=== PATIENT | male | born 1940 | race Caucasian/White ===

== ENCOUNTER 2021-05-03 13:16 | Inpatient (IN) | payer MEDICARE, OTHER ==
[~2021-05-03] VITALS: Ht 172.7 cm; Wt 55.0 kg
[2021-05-03 13:44] LABS: BASE EXCESS ABG -8 mmol/L (-3-3); FIO2 ABG 100 BIPAP; HCO3 ABG 20 mmol/L (21-28); PCO2 ABG 51 mmHg (35-46); PO2 ABG 151 mmHg (65-108); SAT O2 ABG 98 % (92-99)
[2021-05-03 13:52] LABS: BASO # 0.1 x10^3/uL (0.0-0.2); BASO % 1 % (0-3); EOS # 0.2 x10^3/uL (0.0-0.7); EOS % 1 % (0-3); HEMATOCRIT 42.9 % (39.0-53.0); HEMOGLOBIN 13.6 g/dL (13.0-17.5); LYMPH # 1.5 x10^3/uL (1.0-4.8); LYMPH % 11 % (24-48); MEAN CORPUSCULAR HEMOGLOBIN 30 pg (25-35); MEAN CORPUSCULAR HGB CONC 32 g/dL (31-37); MEAN CORPUSCULAR VOLUME 95 fL (79-100); MONO # 0.6 x10^3/uL (0.0-1.1); MONO % 5 % (0-9); NEUT # 11.8 x10^3/uL (1.8-7.7); NEUT % 83 % (31-73); PLATELET COUNT 271 x10^3/uL (140-400); RED BLOOD COUNT 4.54 x10^6/uL (4.30-5.70); RED CELL DISTRIBUTION WIDTH 15.9 % (11.5-14.5); WHITE BLOOD COUNT 14.1 x10^3/uL (4.0-11.0)
--- NOTE | 2021-05-03 13:58 | RAD ---
EXAMINATION: Chest radiograph. VIEWS: Single AP view of the chest COMPARISON: None INDICATION:81 years, Male, shortness of air. FINDINGS: Cardiac mediastinal silhouette is within normal limits. There is tortuosity of the thoracic aorta wit h associated atherosclerotic disease. Findings of severe pulmonary emphysema. Diffuse increased retic ular interstitial opacities. Biapical pleural scarring. Right lower lobe consolidation. Possible mode rate left diaphragmatic hernia. The right costophrenic angle is partially visualized. There is no siz able pleural effusion. No pneumothorax. No acute osseous amount is. IMPRESSION: 1. Findings concerning for right lower lobe pneumonia superimposed on chronic interstitial lung disea se. 2. Possible moderate left diaphragmatic hernia. Electronically signed by: Bill Hylton DO (05/03/2021 1:56 PM) [facility]
[2021-05-03 14:02] LABS: CALCIUM 9.2 mg/dL (8.5-10.1); CREATININE 2.2 mg/dL (0.7-1.3); GFR 28.8; POTASSIUM 4.7 mmol/L (3.5-5.1)
[2021-05-03 14:17] LABS: ALBUMIN 3.9 g/dL (3.4-5.0); TOTAL BILIRUBIN 0.4 mg/dL (0.2-1.0); TOTAL PROTEIN 7.7 g/dL (6.4-8.2)
[2021-05-03] MEDS ORDERED: IV NORMAL SALINE 1000ML BAG 1,000 ML IV ONE (14:45)
[2021-05-03] MEDS ORDERED: AZITHRMYCN 500MG IVPB FOR OMNI 250 ML IV ONE (14:45)
[2021-05-03] MEDS ORDERED: cefTRIAXone IV Push 1 GM VIAL. IVP ONE (14:45)
[2021-05-03] MEDS ORDERED: IPRATRPIUM/ALBUTEROL 0.5/2.5MG 3 ML NEBU. NEB ONE (15:00)
[2021-05-03] MEDS ORDERED: methylPREDNISolone SOD SUCC PF 125 MG/2 ML VIAL. IV ONE (15:00)
[2021-05-03 15:06] LABS: INFLUENZA A PATIENT NEGATIVE (NEGATIVE); INFLUENZA B PATIENT NEGATIVE (NEGATIVE)
--- NOTE | 2021-05-03 15:14 | PHYS DOC ---
Past Medical History Additional Past Medical Histor: UNKNOWN Past Surgical History: Other Additional Past Surgical Histo: UNKNOWN Smoking Status: Unknown if ever smoked Alcohol Use: None Additional Information: UNKNOWN Social History Narrative: UNKNOWN General Adult EDM: Chief Complaint: DYSPNEA/RESPIRATORY DISTRESS HPI: HPI: Patient is a 81 year old male who was brought here by EMS due to respiratory distress. Patient stated that he has been sick with cough, trouble breathing, flulike symptoms for about 3 weeks. He does have a history of COPD, his doctors are at the [place]. patient said he was trying to drive himself to the hospital today but he had to stop by the road to call EMS because he was having trouble breathing and did not think he could make it. EMS found him in severe respiratory distress, his oxygen saturation was 65% on room air. Patient was placed on CPAP and brought him here emergently. Upon arrival to room patient was put on BiPAP in the ED because he was in respiratory distress. Not much information was obtained from the patient or medical record initially. Later, patient stated that he did not have any chest pain, he was fully vaccinated for COVID-19. Review of Systems: Review of Systems: Constitutional: Denies fever or chills. [] Eyes: Denies change in visual acuity. [] HENT: Denies nasal congestion or sore throat. [] Respiratory: Positive for cough and trouble breathing Cardiovascular: Denies chest pain or edema. [] GI: Denies abdominal pain, nausea, vomiting, bloody stools or diarrhea. [] : Denies dysuria. [] Musculoskeletal: Denies back pain or joint pain. [] Integument: Denies rash. [] Neurologic: Denies headache, focal weakness or sensory changes. [] Endocrine: Denies polyuria or polydipsia. [] Lymphatic: Denies swollen glands. [] Psychiatric: Denies depression or anxiety. [] Heart Score: C/O Chest Pain: N/A Risk Factors: Risk Factors: DM, Current or recent (<one month) smoker, HTN, HLP, family history of CAD, obesity. Risk Scores: Score 0 - 3: 2.5% MACE over next 6 weeks - Discharge Home Score 4 - 6: 20.3% MACE over next 6 weeks - Admit for Clinical Observation Score 7 - 10: 72.7% MACE over next 6 weeks - Early Invasive Strategies Current Medications: Current Medications Medications (Trade) Dose Ordered Sig/Krystina Start Time Stop Time Status Last Admin Dose Admin Albuterol/ Ipratropium (Duoneb) 3 ml 1X ONCE 05/03/21 15:00 05/03/21 15:01 DC 05/03/21 14:57 3 ML Azithromycin 250 ml @ 250 mls/hr 1X ONCE 05/03/21 14:45 05/03/21 15:44 Ceftriaxone Sodium (Rocephin) 1 gm 1X ONCE 05/03/21 14:45 05/03/21 14:46 DC Furosemide (Lasix) 40 mg 1X ONCE 05/03/21 15:15 05/03/21 15:16 Methylprednisolone Sodium Succinate (SOLU-Medrol 125MG VIAL) 125 mg 1X ONCE 05/03/21 15:00 05/03/21 15:01 DC Sodium Chloride 1,000 ml @ 1,000 mls/hr 1X ONCE 05/03/21 14:45 05/03/21 15:44 Allergies: Allergies: Allergies Coded Allergies Type Severity Reaction Last Updated Verified Unable to Assess 05/03/21 No Physical Exam: PE: Constitutional: Well developed, well nourished, no acute distress, non-toxic appearance. [] HENT: Normocephalic, atraumatic, bilateral external ears normal, oropharynx moist, no oral exudates, nose normal. [] Eyes: PERRLA, EOMI, conjunctiva normal, no discharge. [] Neck: Normal range of motion, no tenderness, supple, no stridor. [] Cardiovascular:Heart rate regular rhythm, no murmur [] Lungs & Thorax: Bilateral breath sounds clear to auscultation [] Abdomen: Bowel sounds normal, soft, no tenderness, no masses, no pulsatile masses. [] Skin: Warm, dry, no erythema, no rash. [] Back: No tenderness, no CVA tenderness. [] Extremities: No tenderness, no cyanosis, no clubbing, ROM intact, no edema. [] Neurologic: Alert and oriented X 3, normal motor function, normal sensory function, no focal deficits noted. [] Psychologic: Affect normal, judgement normal, mood normal. [] Current Patient Data: Labs: Laboratory Tests Test 05/03/21 13:30 05/03/21 13:40 11/25/21 14:05 White Blood Count 14.1 x10^3/uL (4.0-11.0) H Red Blood Count 4.54 x10^6/uL (4.30-5.70) Hemoglobin 13.6 g/dL (13.0-17.5) Hematocrit 42.9 % (39.0-53.0) Mean Corpuscular Volume 95 fL (79-100) Mean Corpuscular Hemoglobin 30 pg (25-35) Mean Corpuscular Hemoglobin Concent 32 g/dL (31-37) Red Cell Distribution Width 15.9 % (11.5-14.5) H Platelet Count 271 x10^3/uL (140-400) Neutrophils (%) (Auto) 83 % (31-73) H Lymphocytes (%) (Auto) 11 % (24-48) L Monocytes (%) (Auto) 5 % (0-9) Eosinophils (%) (Auto) 1 % (0-3) Basophils (%) (Auto) 1 % (0-3) Neutrophils # (Auto) 11.8 x10^3/uL (1.8-7.7) H Lymphocytes # (Auto) 1.5 x10^3/uL (1.0-4.8) Monocytes # (Auto) 0.6 x10^3/uL (0.0-1.1) Eosinophils # (Auto) 0.2 x10^3/uL (0.0-0.7) Basophils # (Auto) 0.1 x10^3/uL (0.0-0.2) Sodium Level 138 mmol/L (136-145) Potassium Level 4.7 mmol/L (3.5-5.1) Chloride Level 100 mmol/L (98-107) Carbon Dioxide Level 26 mmol/L (21-32) Anion Gap 12 (6-14) Blood Urea Nitrogen 33 mg/dL (8-26) H Creatinine 2.2 mg/dL (0.7-1.3) H Estimated GFR (Cockcroft-Gault) 28.8 BUN/Creatinine Ratio 15 (6-20) Glucose Level 273 mg/dL (70-99) H Lactic Acid Level 3.9 mmol/L (0.4-2.0) H Calcium Level 9.2 mg/dL (8.5-10.1) Total Bilirubin 0.4 mg/dL (0.2-1.0) Aspartate Amino Transferase (AST) 60 U/L (15-37) H Alanine Aminotransferase (ALT) 44 U/L (16-63) Alkaline Phosphatase 172 U/L (46-116) H Troponin I High Sensitivity 129 ng/L (4-75) H Total Protein 7.7 g/dL (6.4-8.2) Albumin 3.9 g/dL (3.4-5.0) Albumin/Globulin Ratio 1.0 (1.0-1.7) O2 Saturation 98 % (92-99) Arterial Blood pH 7.22 (7.35-7.45) L Arterial Blood pCO2 at Patient Temp 51 mmHg (35-46) H Arterial Blood pO2 at Patient Temp 151 mmHg (65-108) H Arterial Blood HCO3 20 mmol/L (21-28) L Arterial Blood Base Excess -8 mmol/L (-3-3) L FiO2 100 bipap Magnesium Level 3.1 mg/dL (1.8-2.4) H JC-Inp-W-Type Natriuretic Peptide > 56530 pg/mL (0-449) H Influenza Type A Antigen Negative (NEGATIVE) Influenza Type B Antigen Negative (NEGATIVE) SARS-CoV-2 Antigen (Rapid) Negative (NEGATIVE) Laboratory Tests 05/03/21 13:30 Laboratory Tests 05/03/21 13:30 Vital Signs: Vital Signs Date Time Temp Pulse Resp B/P (MAP) Pulse Ox O2 Delivery O2 Flow Rate FiO2 05/03/21 14:59 92 BiPAP/CPAP 05/03/21 13:28 98.0 116 36 239/120 (159) 98.0 EKG: EKG: EKG was done at 1430, heart rate 95 bpm, sinus rhythm, left atrial abnormality, left axis deviation, no ST segment elevation. Radiology/Procedures: Radiology/Procedures: [][facility] [address] [place], [place] [id number] IMAGING REPORT Signed PATIENT: JORGE HUBER ACCOUNT: [id number] : 1940 LOCATION: ER AGE: 81 SEX: M EXAM STATUS: PRE ER ORD. PHYSICIAN: GALE RICKETTS DO REASON: soa PROCEDURE: PORTABLE CHEST 1V EXAMINATION: Chest radiograph. VIEWS: Single AP view of the chest COMPARISON: None INDICATION:81 years, Male, shortness of air. FINDINGS: Cardiac mediastinal silhouette is within normal limits. There is tortuosity of the thoracic aorta with associated atherosclerotic disease. Findings of severe pulmonary emphysema. Diffuse increased reticular interstitial opacities. Biapical pleural scarring. Right lower lobe consolidation. Possible moderate left diaphragmatic hernia. The right costophrenic angle is partially visualized. There is no sizable pleural effusion. No pneumothorax. No acute osseous amount is. IMPRESSION: 1. Findings concerning for right lower lobe pneumonia superimposed on chronic interstitial lung disease. 2. Possible moderate left diaphragmatic hernia. Electronically signed by: Ariel Hylton DO (05/03/2021 1:56 PM) [facility] DICTATED and SIGNED BY: ARIEL HYLTON DO DATE: 05/03/21 [id number] 0 Course & Med Decision Making: Course & Med Decision Making Pertinent Labs and Imaging studies reviewed. (See chart for details) Patient is a 81-year-old male who was brought here by EMS due to respiratory distress. Patient was found to be in COPD exacerbation, pneumonia. Patient BNP is elevated and her troponin elevated as well. Patient did not have any chest pain, IT IS most likely that t patient has CHF on top of his pneumonia and COPD exacerbation. Patient was given DuoNeb treatment in the ED, patient was given IV Solu-Medrol, IV antibiotic in the ED. Patient was given IV Lasix in the ER. Patient will be admitted to hospital for further evaluation and treatment. Discussed with hospitalist on-call Dr. Knox who agreed to admit the patient Due to a high probability of clinically significant, life-threatening deterioration, the patient required my highest level of preparedness to intervene emergently and I personally spent this critical care time directly and personally managing the patient. This critical care time included obtaining the history; examining the patient; pulse oximetry; real-time ordering and review of studies; arranging urgent treatment with development of a management plan; evaluation of patient's response to treatment; frequent reassessment; and, di scussions with other providers. This critical care time was performed to assess and manage the high probability of imminent, life-threatening deterioration that could result in multi-organ failure. It was not inclusive of separately billable procedures. Please see the Course and Medical Decision Making section and the rest of the note for further information on patient assessment and treatment. Critical care time was [45] minutes which includes time at bedside, spent in discussion of patient's care with specialist and/or family members, with interpretation of laboratory and/or radiological studies and is exclusive of procedures. Dragon Disclaimer: Dragon Disclaimer: This electronic medical record was generated, in whole or in part, using a voice recognition dictation system. Departure Departure Impression: Primary Impression: Pneumonia Additional Impressions: COPD exacerbation CHF (congestive heart failure) Disposition: 09 ADMITTED INPATIENT Admitting Physician: YAEL (DR. KNOX) Condition: IMPROVED Referrals: UNKNOWN PCP NAME (PCP) GALE RICKETTS DO May 03, 2021 15:14
[2021-05-03] MEDS ORDERED: FUROSEMIDE 40 MG/4 ML VIAL. IVP ONE (15:15)
[2021-05-03] MEDS ORDERED: ONDANSETRON PF 4 MG/2 ML VIAL. IVP PRN (15:30)
[2021-05-03] MEDS ORDERED: PIP/TAZO PER PHARMACY MC PRN (16:45)
--- NOTE | 2021-05-03 16:50 | HP ---
DATE OF SERVICE: 05/03/2021 ADMIT DATE: 05/03/2021 CHIEF COMPLAINT: Shortness of breath. HISTORY OF PRESENT ILLNESS: The patient is a pleasant 81-year-old male who presented to the ER with shortness of breath. He came in by ambulance. He states he has been having cough and trouble breathing and feeling like he had the flu for about 3 weeks. He has known COPD. We did a COVID test in the ER, surprisingly negative. His chest x-ray does show possible pneumonia. He also has a BNP level greater than 35,000. His troponin is high at 129. I discussed the case with the ER physician. We are going to admit the patient for respiratory failure and consultation with Pulmonary and Cardiology. PAST MEDICAL HISTORY: COPD, previous tobacco abuse. ALLERGIES: None. FAMILY HISTORY: Diabetes. SOCIAL HISTORY: He quit smoking. No drink or drugs. MEDICATIONS: Reviewed. Please refer to the MRAD. REVIEW OF SYSTEMS: Unable to obtain. He is on BiPAP. PHYSICAL EXAMINATION: VITALS: Within normal limits and are stable. GENERAL: He is on BiPAP. HEENT: Normocephalic atraumatic, external auditory canals are patent. EYES: Extraocular muscles are intact, pupils are equally round and reactive to light and accommodation. MUSCULOSKELETAL: Well developed, well nourished, good range of motion. ENDOCRINE: No thyromegaly was palpated. LYMPHATICS: No cervical chain or axillary nodes were noted. HEMATOPOIETIC: No bruising. NECK: Supple, no JVD, no thyromegaly was noted. LUNGS: He has bibasilar crackles. HEART: RRR, S1, S2 present. Peripheral pulses intact, no obvious murmurs were noted. ABDOMEN: Soft, nontender. Positive bowel sounds. No organomegaly, normal bowel sounds. EXTREMITIES: Without any cyanosis, clubbing, or edema. Pedal pulses intact, Homans sign is negative. NEUROLOGIC: He is resting, with no apparent distress. PSYCHIATRIC: He is sleeping. SKIN: No ulcerations or rashes, good skin turgor, no jaundice. VASCULAR: Good capillary refill, neurovascular bundle appears to be intact. LABORATORY DATA: White count 14, hemoglobin is 13.6, platelets 271. Electrolytes are normal other than a BUN of 33 and a creatinine of 2.2. ABG shows a pH of 7.22, pCO2 of 51, pO2 of 151, bicarbonate 20 with 98% sat that was on 100% BiPAP. COVID testing is negative. Flu testing is negative. Chest x-ray shows pneumonia and superimposed interstitial lung disease and a possible left diaphragmatic hernia. ASSESSMENT AND PLAN: Multifactorial respiratory failure with heart failure and pneumonia and history of chronic obstructive pulmonary disease. The patient has been admitted. We will start IV antibiotics, DuoNebs, continue the BiPAP, IV steroids, nebulizer treatments. Consult Pulmonary, consult Cardiology. Home meds. Deep venous thrombosis prophylaxis. Full code. Prognosis long-term, guarded. Cardiac monitoring. P.r.n. Zofran. We gave 1 dose of IV Lasix in the ER and we will continue with that if Cardiology agrees. JUANI/[facility]: JUANI/chidi TID: [id number]
[2021-05-03 18:07] VITALS: BP 159/77
--- NOTE | 2021-05-03 19:07 | EKG ---
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
[2021-05-03 19:35] VITALS: BP 137/80
[2021-05-03] MEDS: PIPERACILLIN/TAZOBACTAM 2.25 GM in IV NORMAL SALINE 50ML 50 ML IV SCH (19:37)
[2021-05-03] MEDS: IPRATRPIUM/ALBUTEROL 0.5/2.5MG 3 ML NEBU. NEB SCH (19:37)
[2021-05-03] MEDS ORDERED: IPRATRPIUM/ALBUTEROL 0.5/2.5MG 3 ML NEBU. NEB SCH (20:00)
[2021-05-03] MEDS: methylPREDNISolone SOD SUCC PF 40 MG/ML VIAL. IV SCH (20:50)
[2021-05-03 22:40] VITALS: BP 135/53
[2021-05-04] MEDS: PIPERACILLIN/TAZOBACTAM 2.25 GM in IV NORMAL SALINE 50ML 50 ML IV SCH ×4 (00:56→18:20)
[2021-05-04 02:43] VITALS: BP 153/76
[2021-05-04 04:33] LABS: BASO % 0 % (0-3); EOS % 0 % (0-3); HEMATOCRIT 33.1 % (39.0-53.0); HEMOGLOBIN 10.9 g/dL (13.0-17.5); LYMPH # 0.3 x10^3/uL (1.0-4.8); LYMPH % 4 % (24-48); MEAN CORPUSCULAR HEMOGLOBIN 30 pg (25-35); MEAN CORPUSCULAR HGB CONC 33 g/dL (31-37); MEAN CORPUSCULAR VOLUME 92 fL (79-100); MONO # 0.2 x10^3/uL (0.0-1.1); MONO % 2 % (0-9); NEUT # 9.4 x10^3/uL (1.8-7.7); NEUT % 95 % (31-73); PLATELET COUNT 212 x10^3/uL (140-400); RED CELL DISTRIBUTION WIDTH 15.5 % (11.5-14.5); WHITE BLOOD COUNT 9.9 x10^3/uL (4.0-11.0)
[2021-05-04 05:05] LABS: CALCIUM 8.5 mg/dL (8.5-10.1); CREATININE 2.2 mg/dL (0.7-1.3); GFR 28.8; POTASSIUM 4.7 mmol/L (3.5-5.1)
--- NOTE | 2021-05-04 06:43 | EKG ---
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
[2021-05-04 06:59] LABS: % BANDS 4 % (0-9); % LYMPHS 3 % (24-48); % MONOS 2 % (0-10); % SEGS 91 % (35-66)
[2021-05-04 07:00] VITALS: BP 120/76
[2021-05-04 07:00] LABS: PLT ESTIMATE ADEQUATE (ADEQUATE)
[2021-05-04] MEDS: IPRATRPIUM/ALBUTEROL 0.5/2.5MG 3 ML NEBU. NEB SCH ×4 (07:07→19:21)
--- NOTE | 2021-05-04 08:50 | CONS ---
DATE OF CONSULTATION: 05/04/2021 PULMONARY CONSULTATION ATTENDING PHYSICIAN: Sary Knox DO. REASON FOR CONSULTATION: Respiratory failure. HISTORY OF PRESENT ILLNESS: The patient is an 81-year-old male who has a history of tobacco use for 50+ years. The patient states he started smoking again. He was brought into the hospital after he has been noted to be dyspneic. He had a cough. He states that he has been on a modified diet, but he started choking on the food as well. The patient states he was so confused. He was not so sure how he ended up in [facility] initially. The patient was seen in our ER. His chest x-ray was reviewed by me. His chest x-ray was consistent with right lower lobe pneumonia. Overall, there were some bilateral interstitial infiltrates as well. There was no recent old x-ray available for comparison. His arterial blood gases were highly abnormal, which showed a pH of 7.22, pCO2 of 51 and a pO2 of 151 with a bicarbonate of 20. This was on 100% FiO2. The patient was also noted to be in ALBA with a BUN of 41 and a creatinine of 2.2. He is much better today. He is currently requiring 3.5 liters of oxygen. His blood pressure is stable. He is afebrile. His COVID rapid is negative. Influenza negative. He denies any nausea, vomiting. No headaches. No focal weakness. No leg edema or calf pain. No dysuria. Consultation requested for further evaluation and management. The patient received 1 dose of Lasix, IV steroids and also one dose of Lovenox in the ER. The patient was given antibiotics as well. PAST MEDICAL HISTORY: Significant for COPD, suspect severe. A 50+ years of tobacco use and started smoking again recently. PAST SURGICAL HISTORY: No recent surgeries. ALLERGIES: None. FAMILY HISTORY: Diabetes. SOCIAL HISTORY: He smoked for 50+ years and started smoking again. MEDICATIONS: All reviewed as listed in the MRAD. REVIEW OF SYSTEMS: A 12-point system was obtained. Pertinent positives as discussed in my present illness, otherwise noncontributory. All systems that were negative were reviewed as well. PHYSICAL EXAMINATION: GENERAL: He is awake and following commands. VITAL SIGNS: Blood pressure 120 systolic, afebrile, pulse ox 97% on 3.5 liters. NECK: Supple. LUNGS: With few crackles, right base. CARDIOVASCULAR: With a regular rate. ABDOMEN: Soft, nontender. EXTREMITIES: With no pitting edema. LABORATORY DATA: Reviewed. His BUN is 41 and a creatinine of 2.2. His proBNP was more than 35,000. Bicarbonate on ABGs was low. White cell count was 14.1, now down to 9.9, hemoglobin 10.9 and platelets are 212. IMPRESSION: 1. Acute hypoxic and hypercapnic respiratory failure, secondary to multifactorial etiologies and includes combination of acute exacerbation of chronic obstructive pulmonary disease, acute encephalopathy, pneumonia and congestive heart failure. 2. Acute exacerbation of chronic obstructive pulmonary disease in a patient who has smoked for 50+ years and started smoking again. 3. Right lower lobe pneumonia, possible aspiration since he choked on food recently. 4. Abnormal chest x-ray, secondary to combination of pneumonia in the right lower lobe and suspect congestive heart failure. Difficult to rule out any interstitial lung disease as there is no recent x-ray available for comparison. ProBNP is markedly high. 5. Acute kidney injury. 6. Leukocytosis, likely secondary to pneumonia. 7. Metabolic acidosis due to ALBA. RECOMMENDATIONS: 1. Discussed with the patient that at this time, we have to fix multiple issues that he presented to us. He wants to go home as he feels better. I convinced him to stay at least 1 more day and probably more than 1 day stay would be required. 2. We will gradually wean FiO2 based on the saturations. Keep them 92% and above. 3. Continue empiric antibiotics, Zosyn. 4. Speech evaluation. 5. IV steroids. 6. Status post Lasix. We will hold further doses due to ALBA. 7. Follow up chest x-ray in am 7. Follow Renal recommendations. 8. Smoking cessation counseling provided. 9. Monitor BUN and creatinine. 10. Lovenox for DVT prophylaxis. 11. Discussed with RN. Case discussed with the patient and he is agreeable to stay in the hospital. ESTHER DR: Johanna TID: [id number] MTDD
[2021-05-04] MEDS: methylPREDNISolone SOD SUCC PF 40 MG/ML VIAL. IV SCH ×2 (08:59→20:08)
[2021-05-04] MEDS: HEPARIN for SUB-Q USE 5,000 UNIT/ML VIAL. SQ SCH ×3 (09:00→21:30)
[2021-05-04] MEDS: LACTOBACILLUS RHAMNOSUS GG 1 CAPSULE. PO SCH ×2 (09:00→20:09)
--- NOTE | 2021-05-04 10:43 | PDOC2 ---
CONSULT Date of Consult Date of Consult DATE: 05/04/21 TIME: 10:38 Reason for Consult Reason for Consult: RENAL FAILURE Referring Physician Referring Physician: HORTENSIA Identification/Chief Complaint Chief Complaint SOB Source Source: Chart review, Patient History of Present Illness Reason for Visit: THIS IS AN 81 YR OLD WITH SOB. ADMITTED WITH AECOPD. HAS LONG HX OF TOBACCO SMOKING HISTORY. HAS HYPERCARBIA AND HYPOXIA. CR NOTED TO BE 2.2. HE IS UNAWARE OF ANY HX OF KIDNEY PROBLEMS. DENIED ANY LUTS FROM ANY PROSTATE PROBLEMS. NO OTHER HX. HEMODYNAMICALLY STABLE AND NO KNOW NEPHROTOXIN EXPOSURE NOTED. NO HX OF HTN OR DM II Past Medical History Pulmonary: COPD Past Surgical History Past Surgical History NONE Family History Family History: No Significant Social History # pack years (50+) Drugs: None Lives: with Family Current Problem List Problem List Problems Medical Problems: (1) CHF (congestive heart failure) Status: Acute (2) COPD exacerbation Status: Acute (3) Pneumonia Status: Acute Current Medications Current Medications Current Medications Ceftriaxone Sodium (Rocephin) 1 gm 1X ONCE IVP Last administered on 05/03/21at 15:09; Start 05/03/21 at 14:45; Stop 05/03/21 at 14:46; Status DC Azithromycin 250 ml @ 250 mls/hr 1X ONCE IV Last administered on 05/03/21at 1 5:15; Start 05/03/21 at 14:45; Stop 05/03/21 at 15:44; Status DC Sodium Chloride 1,000 ml @ 1,000 mls/hr 1X ONCE IV ; Start 05/03/21 at 14:45; Stop 05/03/21 at 15:44; Status DC Albuterol/ Ipratropium (Duoneb) 3 ml 1X ONCE NEB Last administered on 05/03/21at 14:57; Start 05/03/21 at 15:00; Stop 05/03/21 at 15:01; Status DC Methylprednisolone Sodium Succinate (SOLU-Medrol 125MG VIAL) 125 mg 1X ONCE IV Last administered on 05/03/21at 15:07; Start 05/03/21 at 15:00; Stop 05/03/21 at 15:01; Status DC Furosemide (Lasix) 40 mg 1X ONCE IVP Last administered on 05/03/21at 15:20; Start 05/03/21 at 15:15; Stop 05/03/21 at 15:16; Status DC Ondansetron HCl (Zofran) 4 mg PRN Q8HRS PRN IVP NAUSEA/VOMITING; Start 05/03/21 at 15:30; Stop 05/04/21 at 15:29 Albuterol/ Ipratropium (Duoneb) 3 ml RTQID NEB ; Start 05/03/21 at 20:00; Stop 05/03/21 at 16:41; Status DC Enoxaparin Sodium (Lovenox 60mg Syringe) 60 mg 1X ONCE SQ Last administered on 05/03/21at 15:56; Start 05/03/21 at 16:00; Stop 05/03/21 at 16:01; Status DC Albuterol/ Ipratropium (Duoneb) 3 ml RTQID NEB Last administered on 05/03/21at 19:37; Start 05/03/21 at 20:00 Piperacillin Sod/ Tazobactam Sod (Zosyn Per Pharmacy) 1 each PRN DAILY PRN MC SEE COMMENTS; Start 05/03/21 at 16:45 Methylprednisolone Sodium Succinate (SOLU-Medrol 40MG VIAL) 40 mg BID IV Last administered on 05/04/21at 08:59; Start 05/03/21 at 21:00 Piperacillin Sod/ Tazobactam Sod 2.25 gm/Sodium Chloride 50 ml @ 100 mls/hr Q6HRS IV Last administered on 05/04/21at 05:43; Start 05/03/21 at 18:00 Lactobacillus Rhamnosus (Culturelle) 1 cap BID PO Last administered on 05/04/21at 09:00; Start 05/04/21 at 09:00 Heparin Sodium (Porcine) (Heparin Sodium) 5,000 unit Q8HRS SQ Last administered on 05/04/21at 09:00; Start 05/04/21 at 09:00 Allergies Allergies: Coded Allergies: No Known Drug Allergies (Unverified , 05/03/21) ROS General: YES: Fatigue, Malaise PSYCHOLOGICAL ROS: YES: Anxiety HEENT: YES: Heacaches ALLERGY AND IMMUNOLOGY: YES: Seasonal Allergies Respiratory: YES: Cough, Shortness of breath Cardiovascular: yes Other Gastrointestinal: Yes Constipation Genitourinary: YES Other (NOCTURIA) Musculoskeletal: Yes Muscular Weakness Neurological: Yes Weakness Skin: Yes Dry Skin Physical Exam General: Alert, Oriented X3, Cooperative, No acute distress HEENT: Atraumatic Lungs: Clear to auscultation Heart: Regular rate Abdomen: Normal bowel sounds, Soft, No tenderness Extremities: No cyanosis Skin: No breakdown Neuro: Normal speech, Cranial nerves 3-12 NL Psych/Mental Status: Mental status NL, Mood NL MUSCULOSKELETAL: No joint tenderness, No deformity, No swelling Vitals VITALS Vital Signs Date Time Temp Pulse Resp B/P (MAP) Pulse Ox O2 Delivery O2 Flow Rate FiO2 05/04/21 07:00 98.1 86 16 120/76 (91) 97 Nasal Cannula 3.5 98.1 Labs Labs Laboratory Tests Test 05/03/21 13:30 05/03/21 13:40 05/03/21 14:05 05/04/21 04:00 White Blood Count 14.1 x10^3/uL (4.0-11.0) 9.9 x10^3/uL (4.0-11.0) Red Blood Count 4.54 x10^6/uL (4.30-5.70) 3.60 x10^6/uL (4.30-5.70) Hemoglobin 13.6 g/dL (13.0-17.5) 10.9 g/dL (13.0-17.5) Hematocrit 42.9 % (39.0-53.0) 33.1 % (39.0-53.0) Mean Corpuscular Volume 95 fL (79-100) 92 fL (79-100) Mean Corpuscular Hemoglobin 30 pg (25-35) 30 pg (25-35) Mean Corpuscular Hemoglobin Concent 32 g/dL (31-37) 33 g/dL (31-37) Red Cell Distribution Width 15.9 % (11.5-14.5) 15.5 % (11.5-14.5) Platelet Count 271 x10^3/uL (140-400) 212 x10^3/uL (140-400) Neutrophils (%) (Auto) 83 % (31-73) 95 % (31-73) Lymphocytes (%) (Auto) 11 % (24-48) 4 % (24-48) Monocytes (%) (Auto) 5 % (0-9) 2 % (0-9) Eosinophils (%) (Auto) 1 % (0-3) 0 % (0-3) Basophils (%) (Auto) 1 % (0-3) 0 % (0-3) Neutrophils # (Auto) 11.8 x10^3/uL (1.8-7.7) 9.4 x10^3/uL (1.8-7.7) Lymphocytes # (Auto) 1.5 x10^3/uL (1.0-4.8) 0.3 x10^3/uL (1.0-4.8) Monocytes # (Auto) 0.6 x10^3/uL (0.0-1.1) 0.2 x10^3/uL (0.0-1.1) Eosinophils # (Auto) 0.2 x10^3/uL (0.0-0.7) 0.0 x10^3/uL (0.0-0.7) Basophils # (Auto) 0.1 x10^3/uL (0.0-0.2) 0.0 x10^3/uL (0.0-0.2) Sodium Level 138 mmol/L (136-145) 141 mmol/L (136-145) Potassium Level 4.7 mmol/L (3.5-5.1) 4.7 mmol/L (3.5-5.1) Chloride Level 100 mmol/L (98-107) 102 mmol/L (98-107) Carbon Dioxide Level 26 mmol/L (21-32) 27 mmol/L (21-32) Anion Gap 12 (6-14) 12 (6-14) Blood Urea Nitrogen 33 mg/dL (8-26) 41 mg/dL (8-26) Creatinine 2.2 mg/dL (0.7-1.3) 2.2 mg/dL (0.7-1.3) Estimated GFR (Cockcroft-Gault) 28.8 28.8 BUN/Creatinine Ratio 15 (6-20) Glucose Level 273 mg/dL (70-99) 138 mg/dL (70-99) Lactic Acid Level 3.9 mmol/L (0.4-2.0) 1.5 mmol/L (0.4-2.0) Calcium Level 9.2 mg/dL (8.5-10.1) 8.5 mg/dL (8.5-10.1) Total Bilirubin 0.4 mg/dL (0.2-1.0) Aspartate Amino Transf (AST/SGOT) 60 U/L (15-37) Alanine Aminotransferase (ALT/SGPT) 44 U/L (16-63) Alkaline Phosphatase 172 U/L (46-116) Troponin I High Sensitivity 129 ng/L (4-75) Total Protein 7.7 g/dL (6.4-8.2) Albumin 3.9 g/dL (3.4-5.0) Albumin/Globulin Ratio 1.0 (1.0-1.7) O2 Saturation 98 % (92-99) Arterial Blood pH 7.22 (7.35-7.45) Arterial Blood pCO2 at Patient Temp 51 mmHg (35-46) Arterial Blood pO2 at Patient Temp 151 mmHg (65-108) Arterial Blood HCO3 20 mmol/L (21-28) Arterial Blood Base Excess -8 mmol/L (-3-3) FiO2 100 bipap Magnesium Level 3.1 mg/dL (1.8-2.4) LW-Dxc-U-Type Natriuretic Peptide > 19307 pg/mL (0-449) Influenza Type A Antigen Negative (NEGATIVE) Influenza Type B Antigen Negative (NEGATIVE) SARS-CoV-2 RNA (RICKIE) Negative (Negative) SARS-CoV-2 Antigen (Rapid) Negative (NEGATIVE) Segmented Neutrophils % 91 % (35-66) Band Neutrophils % 4 % (0-9) Lymphocytes % 3 % (24-48) Monocytes % 2 % (0-10) Platelet Estimate Adequate (ADEQUATE) Laboratory Tests Test 05/03/21 13:30 05/03/21 13:40 05/03/21 14:05 05/04/21 04:00 White Blood Count 14.1 x10^3/uL (4.0-11.0) 9.9 x10^3/uL (4.0-11.0) Red Blood Count 4.54 x10^6/uL (4.30-5.70) 3.60 x10^6/uL (4.30-5.70) Hemoglobin 13.6 g/dL (13.0-17.5) 10.9 g/dL (13.0-17.5) Hematocrit 42.9 % (39.0-53.0) 33.1 % (39.0-53.0) Mean Corpuscular Volume 95 fL (79-100) 92 fL (79-100) Mean Corpuscular Hemoglobin 30 pg (25-35) 30 pg (25-35) Mean Corpuscular Hemoglobin Concent 32 g/dL (31-37) 33 g/dL (31-37) Red Cell Distribution Width 15.9 % (11.5-14.5) 15.5 % (11.5-14.5) Platelet Count 271 x10^3/uL (140-400) 212 x10^3/uL (140-400) Neutrophils (%) (Auto) 83 % (31-73) 95 % (31-73) Lymphocytes (%) (Auto) 11 % (24-48) 4 % (24-48) Monocytes (%) (Auto) 5 % (0-9) 2 % (0-9) Eosinophils (%) (Auto) 1 % (0-3) 0 % (0-3) Basophils (%) (Auto) 1 % (0-3) 0 % (0-3) Neutrophils # (Auto) 11.8 x10^3/uL (1.8-7.7) 9.4 x10^3/uL (1.8-7.7) Lymphocytes # (Auto) 1.5 x10^3/uL (1.0-4.8) 0.3 x10^3/uL (1.0-4.8) Monocytes # (Auto) 0.6 x10^3/uL (0.0-1.1) 0.2 x10^3/uL (0.0-1.1) Eosinophils # (Auto) 0.2 x10^3/uL (0.0-0.7) 0.0 x10^3/uL (0.0-0.7) Basophils # (Auto) 0.1 x10^3/uL (0.0-0.2) 0.0 x10^3/uL (0.0-0.2) Sodium Level 138 mmol/L (136-145) 141 mmol/L (136-145) Potassium Level 4.7 mmol/L (3.5-5.1) 4.7 mmol/L (3.5-5.1) Chloride Level 100 mmol/L (98-107) 102 mmol/L (98-107) Carbon Dioxide Level 26 mmol/L (21-32) 27 mmol/L (21-32) Anion Gap 12 (6-14) 12 (6-14) Blood Urea Nitrogen 33 mg/dL (8-26) 41 mg/dL (8-26) Creatinine 2.2 mg/dL (0.7-1.3) 2.2 mg/dL (0.7-1.3) Estimated GFR (Cockcroft-Gault) 28.8 28.8 BUN/Creatinine Ratio 15 (6-20) Glucose Level 273 mg/dL (70-99) 138 mg/dL (70-99) Lactic Acid Level 3.9 mmol/L (0.4-2.0) 1.5 mmol/L (0.4-2.0) Calcium Level 9.2 mg/dL (8.5-10.1) 8.5 mg/dL (8.5-10.1) Total Bilirubin 0.4 mg/dL (0.2-1.0) Aspartate Amino Transf (AST/SGOT) 60 U/L (15-37) Alanine Aminotransferase (ALT/SGPT) 44 U/L (16-63) Alkaline Phosphatase 172 U/L (46-116) Troponin I High Sensitivity 129 ng/L (4-75) Total Protein 7.7 g/dL (6.4-8.2) Albumin 3.9 g/dL (3.4-5.0) Albumin/Globulin Ratio 1.0 (1.0-1.7) O2 Saturation 98 % (92-99) Arterial Blood pH 7.22 (7.35-7.45) Arterial Blood pCO2 at Patient Temp 51 mmHg (35-46) Arterial Blood pO2 at Patient Temp 151 mmHg (65-108) Arterial Blood HCO3 20 mmol/L (21-28) Arterial Blood Base Excess -8 mmol/L (-3-3) FiO2 100 bipap Magnesium Level 3.1 mg/dL (1.8-2.4) EE-Suf-R-Type Natriuretic Peptide > 62581 pg/mL (0-449) Influenza Type A Antigen Negative (NEGATIVE) Influenza Type B Antigen Negative (NEGATIVE) SARS-CoV-2 RNA (RICKIE) Negative (Negative) SARS-CoV-2 Antigen (Rapid) Negative (NEGATIVE) Segmented Neutrophils % 91 % (35-66) Band Neutrophils % 4 % (0-9) Lymphocytes % 3 % (24-48) Monocytes % 2 % (0-10) Platelet Estimate Adequate (ADEQUATE) Images Images EXAMINATION: Chest radiograph. VIEWS: Single AP view of the chest COMPARISON: None INDICATION:81 years, Male, shortness of air. FINDINGS: Cardiac mediastinal silhouette is within normal limits. There is tortuosity of the thoracic aorta with associated atherosclerotic disease. Findings of severe pulmonary emphysema. Diffuse increased reticular interstitial opacities. B iapical pleural scarring. Right lower lobe consolidation. Possible moderate left diaphragmatic hernia. The right costophrenic angle is partially visualized. There is no sizable pleural effusion. No pneumothorax. No acute osseous amount is. IMPRESSION: 1. Findings concerning for right lower lobe pneumonia superimposed on chronic interstitial lung disease. 2. Possible moderate left diaphragmatic hernia. Electronically signed by: Bill Hylton DO (05/03/2021 1:56 PM) [facility] Assessment/Plan Assessment/Plan IMP RENAL FAILURE-ACUTE VS CHRONIC ACUTE HYPERCARBIC HYPOXIC RESP FAILURE-PER PULM AECOPD HX TOBACCOISM LEUCOCYTOSIS PNEUMONIA PLAN MOST LIKELY HAS CKD WILL CHECK UA ALSO CHECK RENAL SONOGRAM LABS IN AM WILL FOLLOW DILAN MACKENZIE MD May 04, 2021 10:43
[2021-05-04 11:00] VITALS: BP 117/77
--- NOTE | 2021-05-04 13:14 | CONS ---
DATE OF CONSULTATION: 05/04/2021 REASON FOR CONSULTATION: Heart failure. CONSULTING PHYSICIAN: Dr. Knox. HISTORY OF PRESENT ILLNESS: The patient is an 81-year-old man with past medical history as noted below, who presents to the hospital in the setting of respiratory distress. He reports that he has had difficulty breathing over the last 24 hours, mostly related to his cancer in his throat and his COPD issues. He unfortunately continues to smoke. He states that he was in the hospital approximately 2-3 weeks ago at [place] where he had extensive cardiac evaluation including a stress test, which he reportedly notes was normal. He does not have any current angina. He is sitting up in his bed, eating comfortably and feels back to normal. He denies any syncope or palpitations. No other prior cardiovascular interventions. PAST MEDICAL HISTORY: 1. COPD. 2. Hypertension. 3. Throat cancer. 4. Presumed diastolic heart failure. 5. Presumed chronic kidney disease. SOCIAL HISTORY: The patient is a smoker as noted 50+ pack years. Denies any alcohol or illicit drug use. FAMILY HISTORY: Noncontributory. ALLERGIES: No known drug allergies. CURRENT CARDIOVASCULAR MEDICATIONS: Lasix 40 mg IV push daily. REVIEW OF SYSTEMS: Negative for 10 out of 14 systems reviewed, unless otherwise mentioned above in HPI. PHYSICAL EXAMINATION: VITAL SIGNS: Afebrile, 86, 16, 117/77, 93% on 3.5 liters nasal cannula. GENERAL: He was alert and oriented, in no acute distress. HEAD AND NECK: Grossly unremarkable. He does have difficulty with swallowing and occasional dysphagia. CARDIAC: Regular rate and rhythm without any murmurs, rubs or gallops. LUNGS: Notable for decreased breath sounds bilaterally. ABDOMEN: Soft, nontender, nondistended. EXTREMITIES: No clubbing, cyanosis or edema with diminished pedal and radial pulses. NEUROLOGIC: No focal deficits. MUSCULOSKELETAL: No trauma. PSYCHIATRIC: His mood was notably angry as he does not want to be seen by the consultants. LABORATORY STUDIES: Creatinine 2.2, BNP greater than 35,000. Magnesium 3.1, lactate 3.9. Hemoglobin 10.9. Platelet count 212. Serology for COVID is negative and influenza is also negative. Chest x-ray demonstrates a right lower lobe pneumonia and moderate left diaphragmatic hernia. EKG demonstrates sinus rhythm with left anterior fascicular block without any acute ischemic changes. Troponin is mildly elevated. BNP is greater than 35,000 as noted above. IMPRESSION: 1. Acute on chronic diastolic heart failure, likely in the setting of uncontrolled hypertension related to his chronic obstructive pulmonary disease exacerbation. 3. Chronic obstructive pulmonary disease and significant lung disease with possible aspiration pneumonia. 4. Mildly elevated troponin is likely related to uncontrolled blood pressure. The patient reports normal stress testing recently. RECOMMENDATIONS: 1. At this present time, continue low dose aspirin therapy 81 mg daily and we will try to obtain his records from [facility]. 2. Continue treatment of possible pneumonia and chronic kidney disease with the help of Dr. Raymond and Dr. Maldonado from the [facility]monary [facility]. No further cardiovascular testing is necessary at this time except we will repeat his troponin just to ensure that this is not significantly elevated. Thank you for this consultation. CARMELO JIMENES: Ana Paula TID: [id number]
[2021-05-04 15:00] VITALS: BP 91/61
--- NOTE | 2021-05-04 17:07 | RAD ---
INDICATION: Reason: RENAL FAILURE / Spl. Instructions: / History: COMPARISON: None. TECHNIQUE: Grayscale and color ultrasound images obtained of the bilateral kidneys and bladder. FINDINGS: Right Kidney: 89 mm. Left Kidney: 84 mm. No hydronephrosis bilaterally. Calcific atherosclerosis of partially seen aorta. Portions are obscured by overlying bowel gas. Bladder: Catheter within the largely decompressed urinary bladder Incidental note of pericardial effusion IMPRESSION: * No hydronephrosis. * Incidental note of partially visualized pericardial effusion. * Calcific atherosclerosis. Electronically signed by: Aurelio Bourne MD (05/04/2021 5:05 PM) [id number]
[2021-05-04] MEDS ORDERED: FUROSEMIDE 40 MG/4 ML VIAL. IVP ONE (18:45)
--- NOTE | 2021-05-04 18:48 | PDOC ---
[employer] PROGRESS NOTE Date of Service DOS: DATE: 05/04/21 TIME: 18:44 History of Present Illness History of Present Illness The patient is a pleasant 81-year-old male who presented to the ER with shortness of breath. He came in by ambulance. He states he has been having cough and trouble breathing and feeling like he had the flu for about 3 weeks. He has known COPD. We did a COVID test in the ER, surprisingly negative. His chest x-ray does show possible pneumonia. He also has a BNP level greater than 35,000. His troponin is high at 129. I discussed the case with the ER physician. We are going to admit the patient for respiratory failure and consultation with Pulmonary and Cardiology. 05/04 Patient evaluated examined at bedside. Doing well breathing a little improved. Continue current treatment. Wean O2 as tolerated. Vitals/I&O Vitals/I&O: Vital Signs Date Time Temp Pulse Resp B/P (MAP) Pulse Ox O2 Delivery O2 Flow Rate FiO2 05/04/21 18:22 100 BiPAP/CPAP 05/04/21 16:06 3.0 05/04/21 15:00 97.5 84 16 91/61 (71) 97.5 I & O 05/03/21 05/03/21 05/04/21 15:00 23:00 07:00 Intake Total 50 ml 400 ml Output Total 1175 ml Balance 50 ml -775 ml Physical Exam General: Alert, Oriented X3, Cooperative, No acute distress Heart: Regular rate Lungs: Clear Abdomen: Normal bowel sounds, Soft, No tenderness Extremities: No cyanosis Skin: No breakdown Labs Labs: Laboratory Tests Test 05/04/21 04:00 White Blood Count 9.9 x10^3/uL (4.0-11.0) Red Blood Count 3.60 x10^6/uL (4.30-5.70) Hemoglobin 10.9 g/dL (13.0-17.5) Hematocrit 33.1 % (39.0-53.0) Mean Corpuscular Volume 92 fL (79-100) Mean Corpuscular Hemoglobin 30 pg (25-35) Mean Corpuscular Hemoglobin Concent 33 g/dL (31-37) Red Cell Distribution Width 15.5 % (11.5-14.5) Platelet Count 212 x10^3/uL (140-400) Neutrophils (%) (Auto) 95 % (31-73) Lymphocytes (%) (Auto) 4 % (24-48) Monocytes (%) (Auto) 2 % (0-9) Eosinophils (%) (Auto) 0 % (0-3) Basophils (%) (Auto) 0 % (0-3) Neutrophils # (Auto) 9.4 x10^3/uL (1.8-7.7) Lymphocytes # (Auto) 0.3 x10^3/uL (1.0-4.8) Monocytes # (Auto) 0.2 x10^3/uL (0.0-1.1) Eosinophils # (Auto) 0.0 x10^3/uL (0.0-0.7) Basophils # (Auto) 0.0 x10^3/uL (0.0-0.2) Segmented Neutrophils % 91 % (35-66) Band Neutrophils % 4 % (0-9) Lymphocytes % 3 % (24-48) Monocytes % 2 % (0-10) Platelet Estimate Adequate (ADEQUATE) Sodium Level 141 mmol/L (136-145) Potassium Level 4.7 mmol/L (3.5-5.1) Chloride Level 102 mmol/L (98-107) Carbon Dioxide Level 27 mmol/L (21-32) Anion Gap 12 (6-14) Blood Urea Nitrogen 41 mg/dL (8-26) Creatinine 2.2 mg/dL (0.7-1.3) Estimated GFR (Cockcroft-Gault) 28.8 Glucose Level 138 mg/dL (70-99) Lactic Acid Level 1.5 mmol/L (0.4-2.0) Calcium Level 8.5 mg/dL (8.5-10.1) Troponin I High Sensitivity 1662 ng/L (4-75) Assessment and Plan Assessmemt and Plan Problems Medical Problems: (1) CHF (congestive heart failure) Status: Acute (2) COPD exacerbation Status: Acute (3) Pneumonia Status: Acute Multifactorial respiratory failure with heart failure and pneumonia and history of chronic obstructive pulmonary disease. The patient has been admitted. We will start IV antibiotics, DuoNebs, continue the BiPAP, IV steroids, nebulizer treatments. Consult Pulmonary, consult Cardiology. Home meds. Deep venous thrombosis prophylaxis. Full code. Prognosis long-term, guarded. Cardiac monitoring. P.r.n. Zoyaniv. We gave 1 dose of IV Lasix in the ER and we will continue with that if Cardiology agrees. Comment Review of Relevant I have reviewed the following items christopher (where applicable) has been applied. Medications: Current Medications Medications (Trade) Dose Ordered Sig/Krystina Route PRN Reason Start Time Stop Time Status Last Admin Dose Admin Albuterol/ Ipratropium (Duoneb) 3 ml RTQID NEB 05/03/21 20:00 05/04/21 16:05 Methylprednisolone Sodium Succinate (SOLU-Medrol 40MG VIAL) 40 mg BID IV 05/03/21 21:00 05/04/21 08:59 Lactobacillus Rhamnosus (Culturelle) 1 cap BID PO 05/04/21 09:00 05/04/21 09:00 Heparin Sodium (Porcine) (Heparin Sodium) 5,000 unit Q8HRS SQ 05/04/21 09:00 05/04/21 16:36 Justifications for Admission Other Justification MIKE MARQUES MD May 04, 2021 18:48
[2021-05-04 19:24] VITALS: BP 133/78
[2021-05-04] MEDS ORDERED: ZIPRASIDONE IM 20 MG VIAL. IM PRN (19:30)
[2021-05-04 22:19] VITALS: BP 166/89
[2021-05-05] MEDS: PIPERACILLIN/TAZOBACTAM 2.25 GM in IV NORMAL SALINE 50ML 50 ML IV SCH ×4 (00:29→18:33)
[2021-05-05 03:33] VITALS: BP 140/81
[2021-05-05] MEDS: HEPARIN for SUB-Q USE 5,000 UNIT/ML VIAL. SQ SCH ×3 (05:56→21:07)
[2021-05-05 07:00] VITALS: BP 128/58
[2021-05-05 07:33] LABS: BASO % 0 % (0-3); EOS % 0 % (0-3); HEMATOCRIT 32.3 % (39.0-53.0); HEMOGLOBIN 10.5 g/dL (13.0-17.5); LYMPH # 0.4 x10^3/uL (1.0-4.8); LYMPH % 4 % (24-48); MEAN CORPUSCULAR HEMOGLOBIN 30 pg (25-35); MEAN CORPUSCULAR HGB CONC 32 g/dL (31-37); MEAN CORPUSCULAR VOLUME 92 fL (79-100); MONO # 0.6 x10^3/uL (0.0-1.1); MONO % 6 % (0-9); NEUT # 9.1 x10^3/uL (1.8-7.7); NEUT % 90 % (31-73); PLATELET COUNT 182 x10^3/uL (140-400); RED BLOOD COUNT 3.52 x10^6/uL (4.30-5.70); RED CELL DISTRIBUTION WIDTH 15.5 % (11.5-14.5); WHITE BLOOD COUNT 10.1 x10^3/uL (4.0-11.0)
[2021-05-05 07:54] LABS: CALCIUM 8.6 mg/dL (8.5-10.1); CREATININE 2.5 mg/dL (0.7-1.3); GFR 24.8; POTASSIUM 4.4 mmol/L (3.5-5.1)
[2021-05-05] MEDS: ASPIRIN ENTERIC COATED 81 MG TABLET.DR. PO SCH (08:10)
[2021-05-05] MEDS: methylPREDNISolone SOD SUCC PF 40 MG/ML VIAL. IV SCH ×2 (08:10→21:00)
[2021-05-05] MEDS: LACTOBACILLUS RHAMNOSUS GG 1 CAPSULE. PO SCH ×2 (08:10→20:59)
[2021-05-05] MEDS: IPRATRPIUM/ALBUTEROL 0.5/2.5MG 3 ML NEBU. NEB SCH ×4 (08:17→21:10)
--- NOTE | 2021-05-05 10:31 | PDOC ---
PULMONARY PROGRESS NOTES DATE: 05/05/21 TIME: 10:29 Subjective Feels better. Denies any shortness of breath. Vitals Vital Signs Date Time Temp Pulse Resp B/P (MAP) Pulse Ox O2 Delivery O2 Flow Rate FiO2 05/05/21 08:17 100 BiPAP/CPAP 05/05/21 07:00 97.6 79 18 128/58 (81) 97.6 05/04/21 16:06 3.0 General: Alert, No acute distress Lungs: Clear Cardiovascular: S1 Abdomen: Soft Neuro Exam: Alert Extremities: No Edema Skin: Warm Labs Laboratory Tests Test 05/03/21 13:30 05/03/21 13:40 05/03/21 14:05 05/04/21 04:00 White Blood Count 14.1 x10^3/uL (4.0-11.0) 9.9 x10^3/uL (4.0-11.0) Red Blood Count 4.54 x10^6/uL (4.30-5.70) 3.60 x10^6/uL (4.30-5.70) Hemoglobin 13.6 g/dL (13.0-17.5) 10.9 g/dL (13.0-17.5) Hematocrit 42.9 % (39.0-53.0) 33.1 % (39.0-53.0) Mean Corpuscular Volume 95 fL (79-100) 92 fL (79-100) Mean Corpuscular Hemoglobin 30 pg (25-35) 30 pg (25-35) Mean Corpuscular Hemoglobin Concent 32 g/dL (31-37) 33 g/dL (31-37) Red Cell Distribution Width 15.9 % (11.5-14.5) 15.5 % (11.5-14.5) Platelet Count 271 x10^3/uL (140-400) 212 x10^3/uL (140-400) Neutrophils (%) (Auto) 83 % (31-73) 95 % (31-73) Lymphocytes (%) (Auto) 11 % (24-48) 4 % (24-48) Monocytes (%) (Auto) 5 % (0-9) 2 % (0-9) Eosinophils (%) (Auto) 1 % (0-3) 0 % (0-3) Basophils (%) (Auto) 1 % (0-3) 0 % (0-3) Neutrophils # (Auto) 11.8 x10^3/uL (1.8-7.7) 9.4 x10^3/uL (1.8-7.7) Lymphocytes # (Auto) 1.5 x10^3/uL (1.0-4.8) 0.3 x10^3/uL (1.0-4.8) Monocytes # (Auto) 0.6 x10^3/uL (0.0-1.1) 0.2 x10^3/uL (0.0-1.1) Eosinophils # (Auto) 0.2 x10^3/uL (0.0-0.7) 0.0 x10^3/uL (0.0-0.7) Basophils # (Auto) 0.1 x10^3/uL (0.0-0.2) 0.0 x10^3/uL (0.0-0.2) Sodium Level 138 mmol/L (136-145) 141 mmol/L (136-145) Potassium Level 4.7 mmol/L (3.5-5.1) 4.7 mmol/L (3.5-5.1) Chloride Level 100 mmol/L (98-107) 102 mmol/L (98-107) Carbon Dioxide Level 26 mmol/L (21-32) 27 mmol/L (21-32) Anion Gap 12 (6-14) 12 (6-14) Blood Urea Nitrogen 33 mg/dL (8-26) 41 mg/dL (8-26) Creatinine 2.2 mg/dL (0.7-1.3) 2.2 mg/dL (0.7-1.3) Estimated GFR (Cockcroft-Gault) 28.8 28.8 BUN/Creatinine Ratio 15 (6-20) Glucose Level 273 mg/dL (70-99) 138 mg/dL (70-99) Lactic Acid Level 3.9 mmol/L (0.4-2.0) 1.5 mmol/L (0.4-2.0) Calcium Level 9.2 mg/dL (8.5-10.1) 8.5 mg/dL (8.5-10.1) Total Bilirubin 0.4 mg/dL (0.2-1.0) Aspartate Amino Transf (AST/SGOT) 60 U/L (15-37) Alanine Aminotransferase (ALT/SGPT) 44 U/L (16-63) Alkaline Phosphatase 172 U/L (46-116) Troponin I High Sensitivity 129 ng/L (4-75) 1662 ng/L (4-75) Total Protein 7.7 g/dL (6.4-8.2) Albumin 3.9 g/dL (3.4-5.0) Albumin/Globulin Ratio 1.0 (1.0-1.7) O2 Saturation 98 % (92-99) Arterial Blood pH 7.22 (7.35-7.45) Arterial Blood pCO2 at Patient Temp 51 mmHg (35-46) Arterial Blood pO2 at Patient Temp 151 mmHg (65-108) Arterial Blood HCO3 20 mmol/L (21-28) Arterial Blood Base Excess -8 mmol/L (-3-3) FiO2 100 bipap Magnesium Level 3.1 mg/dL (1.8-2.4) GI-Pln-Q-Type Natriuretic Peptide > 64639 pg/mL (0-449) Influenza Type A Antigen Negative (NEGATIVE) Influenza Type B Antigen Negative (NEGATIVE) SARS-CoV-2 RNA (RICKIE) Negative (Negative) SARS-CoV-2 Antigen (Rapid) Negative (NEGATIVE) Segmented Neutrophils % 91 % (35-66) Band Neutrophils % 4 % (0-9) Lymphocytes % 3 % (24-48) Monocytes % 2 % (0-10) Platelet Estimate Adequate (ADEQUATE) Test 05/05/21 07:00 White Blood Count 10.1 x10^3/uL (4.0-11.0) Red Blood Count 3.52 x10^6/uL (4.30-5.70) Hemoglobin 10.5 g/dL (13.0-17.5) Hematocrit 32.3 % (39.0-53.0) Mean Corpuscular Volume 92 fL (79-100) Mean Corpuscular Hemoglobin 30 pg (25-35) Mean Corpuscular Hemoglobin Concent 32 g/dL (31-37) Red Cell Distribution Width 15.5 % (11.5-14.5) Platelet Count 182 x10^3/uL (140-400) Neutrophils (%) (Auto) 90 % (31-73) Lymphocytes (%) (Auto) 4 % (24-48) Monocytes (%) (Auto) 6 % (0-9) Eosinophils (%) (Auto) 0 % (0-3) Basophils (%) (Auto) 0 % (0-3) Neutrophils # (Auto) 9.1 x10^3/uL (1.8-7.7) Lymphocytes # (Auto) 0.4 x10^3/uL (1.0-4.8) Monocytes # (Auto) 0.6 x10^3/uL (0.0-1.1) Eosinophils # (Auto) 0.0 x10^3/uL (0.0-0.7) Basophils # (Auto) 0.0 x10^3/uL (0.0-0.2) Sodium Level 140 mmol/L (136-145) Potassium Level 4.4 mmol/L (3.5-5.1) Chloride Level 102 mmol/L (98-107) Carbon Dioxide Level 26 mmol/L (21-32) Anion Gap 12 (6-14) Blood Urea Nitrogen 58 mg/dL (8-26) Creatinine 2.5 mg/dL (0.7-1.3) Estimated GFR (Cockcroft-Gault) 24.8 Glucose Level 114 mg/dL (70-99) Calcium Level 8.6 mg/dL (8.5-10.1) Laboratory Tests Test 05/05/21 07:00 White Blood Count 10.1 x10^3/uL (4.0-11.0) Red Blood Count 3.52 x10^6/uL (4.30-5.70) Hemoglobin 10.5 g/dL (13.0-17.5) Hematocrit 32.3 % (39.0-53.0) Mean Corpuscular Volume 92 fL (79-100) Mean Corpuscular Hemoglobin 30 pg (25-35) Mean Corpuscular Hemoglobin Concent 32 g/dL (31-37) Red Cell Distribution Width 15.5 % (11.5-14.5) Platelet Count 182 x10^3/uL (140-400) Neutrophils (%) (Auto) 90 % (31-73) Lymphocytes (%) (Auto) 4 % (24-48) Monocytes (%) (Auto) 6 % (0-9) Eosinophils (%) (Auto) 0 % (0-3) Basophils (%) (Auto) 0 % (0-3) Neutrophils # (Auto) 9.1 x10^3/uL (1.8-7.7) Lymphocytes # (Auto) 0.4 x10^3/uL (1.0-4.8) Monocytes # (Auto) 0.6 x10^3/uL (0.0-1.1) Eosinophils # (Auto) 0.0 x10^3/uL (0.0-0.7) Basophils # (Auto) 0.0 x10^3/uL (0.0-0.2) Sodium Level 140 mmol/L (136-145) Potassium Level 4.4 mmol/L (3.5-5.1) Chloride Level 102 mmol/L (98-107) Carbon Dioxide Level 26 mmol/L (21-32) Anion Gap 12 (6-14) Blood Urea Nitrogen 58 mg/dL (8-26) Creatinine 2.5 mg/dL (0.7-1.3) Estimated GFR (Cockcroft-Gault) 24.8 Glucose Level 114 mg/dL (70-99) Calcium Level 8.6 mg/dL (8.5-10.1) Impression . 1. Acute hypoxic and hypercapnic respiratory failure, secondary to multifactorial etiologies and includes combination of acute exacerbation of chronic obstructive pulmonary disease, acute encephalopathy, pneumonia and congestive heart failure. 2. Acute exacerbation of chronic obstructive pulmonary disease in a patient who has smoked for 50+ years and started smoking again. 3. Right lower lobe pneumonia, possible aspiration since he choked on food recently. 4. Abnormal chest x-ray, secondary to combination of pneumonia in the right lower lobe and suspect congestive heart failure. Difficult to rule out any interstitial lung disease as there is no recent x-ray available for comparison. ProBNP is markedly high. 5. Acute kidney injury. Versus CKD 6. Leukocytosis, likely secondary to pneumonia. 7. Metabolic acidosis due to ALBA. Plan . 1. Clinically improving. 2. We will gradually wean FiO2 based on the saturations. Keep them 92% and above. 3. Continue empiric antibiotics, Zosyn. 4. Speech evaluation. 5. IV steroids. 6. Status post Lasix. We will hold further doses due to ALBA. 7. Follow up chest reviewed 05/05/2021. Improving interstitial infiltrates and improving right lower lobe pneumonia. will do ct chest to r/o ILD vs CHF 7. Follow Renal recommendations. 8. Smoking cessation counseling provided. 9. Monitor BUN and creatinine. 10. Lovenox for DVT prophylaxis. 11. Discussed with RN. 12 ALISTAIR Nobles MD May 05, 2021 10:31
--- NOTE | 2021-05-05 10:37 | RAD ---
EXAM: Chest, single view. HISTORY: Congestive heart failure. COMPARISON: 05/03/2021 FINDINGS: A frontal view of the chest is obtained. There is diffuse increased interstitial opacity. T here is severe emphysema with right greater than left apical pleural thickening likely due to scarrin g. There is cardiomegaly. There is a nodular opacity overlying the right upper lobe which is not seen on the recent comparison exam and likely due to overlying artifact or interstitial infiltrate. IMPRESSION: 1. Diffuse interstitial infiltrate superimposed on severe emphysema. 2. Right greater than left apical pleural parenchymal scarring. 3. Cardiomegaly. Electronically signed by: Paula Pandya MD (05/05/2021 10:35 AM) [id number]
[2021-05-05 10:54] VITALS: BP 141/82
--- NOTE | 2021-05-05 12:08 | PDOC ---
Renal-Progress Notes Subjective Notes Notes NO NEW COMPLAINTS History of Present Illness Hx of present illness STABLE Vitals Vitals Vital Signs Date Time Temp Pulse Resp B/P (MAP) Pulse Ox O2 Delivery O2 Flow Rate FiO2 05/05/21 10:54 98.2 92 18 141/82 (101) 98 Nasal Cannula 1.0 98.2 Weight Weight [ ] I.O. Intake and Output Intake and Output 05/05/21 07:00 Intake Total 550 ml Output Total 1750 ml Balance -1200 ml Intake Oral 350 ml IV Total 200 ml Output Urine Total 1750 ml Labs Labs Laboratory Tests Test 05/05/21 07:00 White Blood Count 10.1 x10^3/uL (4.0-11.0) Red Blood Count 3.52 x10^6/uL (4.30-5.70) Hemoglobin 10.5 g/dL (13.0-17.5) Hematocrit 32.3 % (39.0-53.0) Mean Corpuscular Volume 92 fL (79-100) Mean Corpuscular Hemoglobin 30 pg (25-35) Mean Corpuscular Hemoglobin Concent 32 g/dL (31-37) Red Cell Distribution Width 15.5 % (11.5-14.5) Platelet Count 182 x10^3/uL (140-400) Neutrophils (%) (Auto) 90 % (31-73) Lymphocytes (%) (Auto) 4 % (24-48) Monocytes (%) (Auto) 6 % (0-9) Eosinophils (%) (Auto) 0 % (0-3) Basophils (%) (Auto) 0 % (0-3) Neutrophils # (Auto) 9.1 x10^3/uL (1.8-7.7) Lymphocytes # (Auto) 0.4 x10^3/uL (1.0-4.8) Monocytes # (Auto) 0.6 x10^3/uL (0.0-1.1) Eosinophils # (Auto) 0.0 x10^3/uL (0.0-0.7) Basophils # (Auto) 0.0 x10^3/uL (0.0-0.2) Sodium Level 140 mmol/L (136-145) Potassium Level 4.4 mmol/L (3.5-5.1) Chloride Level 102 mmol/L (98-107) Carbon Dioxide Level 26 mmol/L (21-32) Anion Gap 12 (6-14) Blood Urea Nitrogen 58 mg/dL (8-26) Creatinine 2.5 mg/dL (0.7-1.3) Estimated GFR (Cockcroft-Gault) 24.8 Glucose Level 114 mg/dL (70-99) Calcium Level 8.6 mg/dL (8.5-10.1) Micro Micro Microbiology 05/03/21 Blood Culture - Preliminary, Resulted NO GROWTH AFTER 1 DAY Review of Systems Constitutional: yes: weakness, alert Ears/Nose/Throat: Yes: no symptom reported Eyes: Yes: no symptom reported Pulmonary: Yes dyspnea Cardiovascular: Yes no symptom reported Gastrointestional: Yes: no symptom reported Genitourinary: Yes: no symptom reported Musculoskeletal: Yes: no symptom reported Skin: Yes no symptom reported Psychiatric/Neurological: Yes: no symptom reported Physical Exam General Appearance: no apparent distress Skin: warm Respiratory: bilateral CTA Heart: S1S2 Abdomen: soft, bowel sounds present Genitourinary: bladder flat Extremities: pulses present, atrophy Neurology: alert, oriented Assessment Assessment IMP RENAL FAILURE-ACUTE VS CHRONIC-RENAL SONOGRAM SUGGESTIVE OF CKD ACUTE HYPERCARBIC HYPOXIC RESP FAILURE-PER PULM AECOPD HX TOBACCOISM LEUCOCYTOSIS PNEUMONIA PLAN MOST LIKELY HAS CKD WILL CHECK UA CONT ANTIBIOTICS AND STEROIDS LABS IN AM WILL FOLLOW DILAN MACKENZIE MD May 05, 2021 12:08
[2021-05-05 13:46] LABS: BILIRUBIN,URINE NEGATIVE (NEG); CLARITY,URINE CLOUDY; COLOR,URINE YELLOW; NITRITE,URINE NEGATIVE (NEG); PROTEIN,URINE 30 mg/dL (NEG-TRACE); UROBILINOGEN,URINE 0.2 mg/dL (0.2 mg/dL)
[2021-05-05 13:54] LABS: BACTERIA,URINE 0 /HPF (0-FEW)
[2021-05-05 14:58] VITALS: BP 125/83
--- NOTE | 2021-05-05 18:58 | PDOC ---
CARDIOLOGY PROGRESS NOTE SUBJECTIVE: Patient denies any pain but requesting bipap. No syncope. No palpitations or CP. OBJECTIVE: Vital Signs/I&O: Vital Signs Date Time Temp Pulse Resp B/P (MAP) Pulse Ox O2 Delivery O2 Flow Rate FiO2 05/05/21 14:58 97.8 79 20 125/83 (97) 100 BiPAP/CPAP 97.8 05/05/21 10:54 1.0 I & O 05/04/21 05/04/21 05/05/21 15:00 23:00 07:00 Intake Total 400 ml 50 ml 100 ml Output Total 1750 ml Balance 400 ml 50 ml -1650 ml Objective: GEN.: No apparent distress. Alert and oriented. He is thin HEENT: Head is normocephalic, atraumatic NECK: Supple. LUNGS: Decreased breath sounds bilaterally. HEART: RRR, S1, S2 present. Peripheral pulses intact ABDOMEN: Soft, nontender. Positive bowel sounds. EXTREMITIES: Without any cyanosis. NEUROLOGIC: Normal speech, normal tone PSYCHIATRIC: Normal affect, normal mood. SKIN: No ulcerations CURRENT MEDICATIONS: Current Medications Medications (Trade) Dose Ordered Sig/Krystina Route PRN Reason Start Time Stop Time Status Last Admin Dose Admin Aspirin (Ecotrin) 81 mg [id number] PO 05/05/21 08:00 05/05/21 08:10 DIAGNOSTIC TESTING: Labs reviewed. Labs: Laboratory Tests 05/05/21 07:00 Laboratory Tests Test 05/05/21 07:00 05/05/21 13:25 White Blood Count 10.1 x10^3/uL (4.0-11.0) Red Blood Count 3.52 x10^6/uL (4.30-5.70) L Hemoglobin 10.5 g/dL (13.0-17.5) L Hematocrit 32.3 % (39.0-53.0) L Mean Corpuscular Volume 92 fL (79-100) Mean Corpuscular Hemoglobin 30 pg (25-35) Mean Corpuscular Hemoglobin Concent 32 g/dL (31-37) Red Cell Distribution Width 15.5 % (11.5-14.5) H Platelet Count 182 x10^3/uL (140-400) Neutrophils (%) (Auto) 90 % (31-73) H Lymphocytes (%) (Auto) 4 % (24-48) L Monocytes (%) (Auto) 6 % (0-9) Eosinophils (%) (Auto) 0 % (0-3) Basophils (%) (Auto) 0 % (0-3) Neutrophils # (Auto) 9.1 x10^3/uL (1.8-7.7) H Lymphocytes # (Auto) 0.4 x10^3/uL (1.0-4.8) L Monocytes # (Auto) 0.6 x10^3/uL (0.0-1.1) Eosinophils # (Auto) 0.0 x10^3/uL (0.0-0.7) Basophils # (Auto) 0.0 x10^3/uL (0.0-0.2) Sodium Level 140 mmol/L (136-145) Potassium Level 4.4 mmol/L (3.5-5.1) Chloride Level 102 mmol/L (98-107) Carbon Dioxide Level 26 mmol/L (21-32) Anion Gap 12 (6-14) Blood Urea Nitrogen 58 mg/dL (8-26) H Creatinine 2.5 mg/dL (0.7-1.3) H Estimated GFR (Cockcroft-Gault) 24.8 Glucose Level 114 mg/dL (70-99) H Calcium Level 8.6 mg/dL (8.5-10.1) Urine Collection Type Unknown Urine Color Yellow Urine Clarity Cloudy Urine pH 7.0 (<5.0-8.0) Urine Specific [place] 1.015 (1.000-1.030) Urine Protein 30 mg/dL (NEG-TRACE) Urine Glucose (UA) Negative mg/dL (NEG) Urine Ketones (Stick) Negative mg/dL (NEG) Urine Blood Trace (NEG) Urine Nitrite Negative (NEG) Urine Bilirubin Negative (NEG) Urine Urobilinogen Dipstick 0.2 mg/dL (0.2 mg/dL) Urine Leukocyte Esterase Small (NEG) Urine RBC 1-2 /HPF (0-2) Urine WBC 1-4 /HPF (0-4) Urine Squamous Epithelial Cells Occ /LPF Urine Bacteria 0 /HPF (0-FEW) ASSESSMENT: 1. Acute resp failure, severe COPD 2. NSTEMI - likely type 2 3. Lung CA 4. ALBA PLAN: 1. Plan for echo. Repeat trop. Continue present meds. Supportive care. Justicifation of Admission Dx: Justifications for Admission: Justification of Admission Dx: N/A RACHEL GAMEZ MD May 05, 2021 18:57
[2021-05-05 19:49] VITALS: BP 135/85
[2021-05-05 22:30] VITALS: BP 145/79
[2021-05-06] MEDS: PIPERACILLIN/TAZOBACTAM 2.25 GM in IV NORMAL SALINE 50ML 50 ML IV SCH ×4 (00:17→17:31)
[2021-05-06 03:17] VITALS: BP 141/82
[2021-05-06 03:20] LABS: BASO % 0 % (0-3); EOS % 0 % (0-3); HEMATOCRIT 32.7 % (39.0-53.0); HEMOGLOBIN 10.5 g/dL (13.0-17.5); LYMPH # 0.2 x10^3/uL (1.0-4.8); LYMPH % 3 % (24-48); MEAN CORPUSCULAR HEMOGLOBIN 30 pg (25-35); MEAN CORPUSCULAR HGB CONC 32 g/dL (31-37); MEAN CORPUSCULAR VOLUME 93 fL (79-100); MONO # 0.2 x10^3/uL (0.0-1.1); MONO % 3 % (0-9); NEUT # 7.2 x10^3/uL (1.8-7.7); NEUT % 94 % (31-73); PLATELET COUNT 172 x10^3/uL (140-400); RED BLOOD COUNT 3.52 x10^6/uL (4.30-5.70); RED CELL DISTRIBUTION WIDTH 15.8 % (11.5-14.5); WHITE BLOOD COUNT 7.7 x10^3/uL (4.0-11.0)
[2021-05-06 04:04] LABS: CALCIUM 8.7 mg/dL (8.5-10.1); CREATININE 2.3 mg/dL (0.7-1.3); GFR 27.4; POTASSIUM 4.8 mmol/L (3.5-5.1)
[2021-05-06] MEDS: HEPARIN for SUB-Q USE 5,000 UNIT/ML VIAL. SQ SCH ×3 (05:50→20:41)
[2021-05-06 06:10] VITALS: BP 142/82
[2021-05-06] MEDS: ASPIRIN ENTERIC COATED 81 MG TABLET.DR. PO SCH (08:22)
[2021-05-06] MEDS: methylPREDNISolone SOD SUCC PF 40 MG/ML VIAL. IV SCH ×2 (08:22→20:35)
[2021-05-06] MEDS: LACTOBACILLUS RHAMNOSUS GG 1 CAPSULE. PO SCH ×2 (08:22→20:35)
[2021-05-06] MEDS: IPRATRPIUM/ALBUTEROL 0.5/2.5MG 3 ML NEBU. NEB SCH ×4 (08:44→20:42)
--- NOTE | 2021-05-06 08:52 | PDOC ---
PULMONARY PROGRESS NOTES DATE: 05/06/21 TIME: 08:49 Subjective Feels better. Denies any shortness of breath.. Remains on 4 L oxygen via nasal cannula. Wants to go home. Vitals Vital Signs Date Time Temp Pulse Resp B/P (MAP) Pulse Ox O2 Delivery O2 Flow Rate FiO2 05/06/21 08:45 99 Nasal Cannula 4.0 05/06/21 06:10 97.4 82 20 142/82 (102) 97.4 General: Alert, No acute distress Lungs: Clear Cardiovascular: S1 Abdomen: Soft Neuro Exam: Alert Extremities: No Edema Skin: Warm Labs Laboratory Tests Test 05/05/21 07:00 05/05/21 13:25 05/05/21 19:00 05/06/21 02:50 White Blood Count 10.1 x10^3/uL (4.0-11.0) 7.7 x10^3/uL (4.0-11.0) Red Blood Count 3.52 x10^6/uL (4.30-5.70) 3.52 x10^6/uL (4.30-5.70) Hemoglobin 10.5 g/dL (13.0-17.5) 10.5 g/dL (13.0-17.5) Hematocrit 32.3 % (39.0-53.0) 32.7 % (39.0-53.0) Mean Corpuscular Volume 92 fL (79-100) 93 fL (79-100) Mean Corpuscular Hemoglobin 30 pg (25-35) 30 pg (25-35) Mean Corpuscular Hemoglobin Concent 32 g/dL (31-37) 32 g/dL (31-37) Red Cell Distribution Width 15.5 % (11.5-14.5) 15.8 % (11.5-14.5) Platelet Count 182 x10^3/uL (140-400) 172 x10^3/uL (140-400) Neutrophils (%) (Auto) 90 % (31-73) 94 % (31-73) Lymphocytes (%) (Auto) 4 % (24-48) 3 % (24-48) Monocytes (%) (Auto) 6 % (0-9) 3 % (0-9) Eosinophils (%) (Auto) 0 % (0-3) 0 % (0-3) Basophils (%) (Auto) 0 % (0-3) 0 % (0-3) Neutrophils # (Auto) 9.1 x10^3/uL (1.8-7.7) 7.2 x10^3/uL (1.8-7.7) Lymphocytes # (Auto) 0.4 x10^3/uL (1.0-4.8) 0.2 x10^3/uL (1.0-4.8) Monocytes # (Auto) 0.6 x10^3/uL (0.0-1.1) 0.2 x10^3/uL (0.0-1.1) Eosinophils # (Auto) 0.0 x10^3/uL (0.0-0.7) 0.0 x10^3/uL (0.0-0.7) Basophils # (Auto) 0.0 x10^3/uL (0.0-0.2) 0.0 x10^3/uL (0.0-0.2) Sodium Level 140 mmol/L (136-145) 143 mmol/L (136-145) Potassium Level 4.4 mmol/L (3.5-5.1) 4.8 mmol/L (3.5-5.1) Chloride Level 102 mmol/L (98-107) 104 mmol/L (98-107) Carbon Dioxide Level 26 mmol/L (21-32) 28 mmol/L (21-32) Anion Gap 12 (6-14) 11 (6-14) Blood Urea Nitrogen 58 mg/dL (8-26) 53 mg/dL (8-26) Creatinine 2.5 mg/dL (0.7-1.3) 2.3 mg/dL (0.7-1.3) Estimated GFR (Cockcroft-Gault) 24.8 27.4 Glucose Level 114 mg/dL (70-99) 121 mg/dL (70-99) Calcium Level 8.6 mg/dL (8.5-10.1) 8.7 mg/dL (8.5-10.1) Urine Collection Type Unknown Urine Color Yellow Urine Clarity Cloudy Urine pH 7.0 (<5.0-8.0) Urine Specific [place] 1.015 (1.000-1.030) Urine Protein 30 mg/dL (NEG-TRACE) Urine Glucose (UA) Negative mg/dL (NEG) Urine Ketones (Stick) Negative mg/dL (NEG) Urine Blood Trace (NEG) Urine Nitrite Negative (NEG) Urine Bilirubin Negative (NEG) Urine Urobilinogen Dipstick 0.2 mg/dL (0.2 mg/dL) Urine Leukocyte Esterase Small (NEG) Urine RBC 1-2 /HPF (0-2) Urine WBC 1-4 /HPF (0-4) Urine Squamous Epithelial Cells Occ /LPF Urine Bacteria 0 /HPF (0-FEW) Troponin I High Sensitivity 372 ng/L (4-75) Laboratory Tests Test 05/05/21 13:25 05/05/21 19:00 05/06/21 02:50 Urine Collection Type Unknown Urine Color Yellow Urine Clarity Cloudy Urine pH 7.0 (<5.0-8.0) Urine Specific [place] 1.015 (1.000-1.030) Urine Protein 30 mg/dL (NEG-TRACE) Urine Glucose (UA) Negative mg/dL (NEG) Urine Ketones (Stick) Negative mg/dL (NEG) Urine Blood Trace (NEG) Urine Nitrite Negative (NEG) Urine Bilirubin Negative (NEG) Urine Urobilinogen Dipstick 0.2 mg/dL (0.2 mg/dL) Urine Leukocyte Esterase Small (NEG) Urine RBC 1-2 /HPF (0-2) Urine WBC 1-4 /HPF (0-4) Urine Squamous Epithelial Cells Occ /LPF Urine Bacteria 0 /HPF (0-FEW) Troponin I High Sensitivity 372 ng/L (4-75) White Blood Count 7.7 x10^3/uL (4.0-11.0) Red Blood Count 3.52 x10^6/uL (4.30-5.70) Hemoglobin 10.5 g/dL (13.0-17.5) Hematocrit 32.7 % (39.0-53.0) Mean Corpuscular Volume 93 fL (79-100) Mean Corpuscular Hemoglobin 30 pg (25-35) Mean Corpuscular Hemoglobin Concent 32 g/dL (31-37) Red Cell Distribution Width 15.8 % (11.5-14.5) Platelet Count 172 x10^3/uL (140-400) Neutrophils (%) (Auto) 94 % (31-73) Lymphocytes (%) (Auto) 3 % (24-48) Monocytes (%) (Auto) 3 % (0-9) Eosinophils (%) (Auto) 0 % (0-3) Basophils (%) (Auto) 0 % (0-3) Neutrophils # (Auto) 7.2 x10^3/uL (1.8-7.7) Lymphocytes # (Auto) 0.2 x10^3/uL (1.0-4.8) Monocytes # (Auto) 0.2 x10^3/uL (0.0-1.1) Eosinophils # (Auto) 0.0 x10^3/uL (0.0-0.7) Basophils # (Auto) 0.0 x10^3/uL (0.0-0.2) Sodium Level 143 mmol/L (136-145) Potassium Level 4.8 mmol/L (3.5-5.1) Chloride Level 104 mmol/L (98-107) Carbon Dioxide Level 28 mmol/L (21-32) Anion Gap 11 (6-14) Blood Urea Nitrogen 53 mg/dL (8-26) Creatinine 2.3 mg/dL (0.7-1.3) Estimated GFR (Cockcroft-Gault) 27.4 Glucose Level 121 mg/dL (70-99) Calcium Level 8.7 mg/dL (8.5-10.1) Comments CT CHEST: 1. Nodular consolidative change identified within the medial aspect of the left upper lobe anteriorly measures 2.2 x 1.9 cm. On the background of severe centrilobular pulmonary emphysema, findings are concerning for underlying pulmonary malignancy. Consideration may be given for pulmonary infiltrate in the appropriate clinical setting. Recommend further evaluation with PET/CT versus one month follow-up chest CT. Comparison with prior CT chest imaging would be of benefit if available. 2. No pathologically enlarged thoracic lymph nodes within the limitations of noncontrast examination. 3. Subpleural spiculated nodule identified within the right upper lobe measuring 0.9 cm. Attention on follow-up imaging or PET imaging could be of benefit. 4. Small bilateral pleural effusions with adjacent compressive atelectasis. 5. Small pericardial effusion. 6. 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 Electronically signed by: Trina Linares MD (05/06/2021 9:15 AM) [id number] Impression . 1. Acute hypoxic and hypercapnic respiratory failure, secondary to multifactorial etiologies and includes combination of acute exacerbation of chronic obstructive pulmonary disease, acute encephalopathy, pneumonia and congestive heart failure. 2. Acute exacerbation of chronic obstructive pulmonary disease in a patient who has smoked for 50+ years and started smoking again. 3. Right lower lobe pneumonia, possible aspiration since he choked on food recently. 4. Abnormal chest x-ray, secondary to combination of pneumonia in the right lower lobe and suspect congestive heart failure. Difficult to rule out any interstitial lung disease as there is no recent x-ray available for comparison. ProBNP is markedly high. 5. Acute kidney injury. Versus CKD 6. Leukocytosis, likely secondary to pneumonia. 7. Metabolic acidosis due to ALBA. 8. ABNORMAL CT CHEST/ Nodular consolidative change identified within the medial aspect of the left upper lobe anteriorly measures 2.2 x 1.9 cm. 9 mm pleural based nodule RUL Plan . 1. Clinically improving. 2. We will gradually wean FiO2 based on the saturations. Keep them 92% and above. 3. Continue empiric antibiotics, Zosyn. 4. ABNORMAL CT CHEST/ Nodular consolidative change identified within the medial aspect of the left upper lobe anteriorly measures 2.2 x 1.9 cm. 9 mm pleural based nodule RUL. Improving RLL pneumonia. will need 3 month f/u ct chest 5. IV steroids with taper 6. Status post Lasix. We will hold further doses due to ALBA. 7. Follow Renal recommendations. 8. Smoking cessation counseling provided. 9. Monitor BUN and creatinine. 10. Lovenox for DVT prophylaxis. 11. Discussed with RN. 12 echo pending. 13. Patient is insisting in going home. He would need another day or so. He would need a 6-minute walk test on the day of discharge. Discussed with RN. ALISTAIR LEDESMA MD May 06, 2021 08:52
--- NOTE | 2021-05-06 09:17 | RAD ---
PQRS Compliance Statement: One or more of the following individualized dose reduction techniques were utilized for this examinat ion: 1. Automated exposure control 2. Adjustment of the mA and/or kV according to patient size 3. Use of iterative reconstruction technique CT THORAX WO 05/05/2021 5:40 PM Indication: Distal heart failure. Interstitial lung disease. COMPARISON: None available. TECHNIQUE: Multiple axial CT images of the chest were obtained without intravenous contrast. Coronal and sagittal reformats are provided. FINDINGS: Thyroid gland is diminutive. Heart size is within normal limits. Small pericardial effusion. Three-ve ssel coronary artery vascular calcification. Thoracic aorta is normal in course and caliber with dens e calcified atheromatous plaque. No pathologically enlarged lymph nodes within the limitations of non contrast examination. Precarinal lymph node measures 0.8 cm. There are small bilateral pleural effusions with adjacent compressive atelectasis. Severe centrilobul ar pulmonary emphysema. Biapical pleural-parenchymal scarring. Lung the medial aspect of the left upp er lobe there is nodular pleural-based consolidative change measuring 2.2 x 1.9 cm. There is associat ed atelectasis or scarring along the medial aspect of the left upper lobe. Is subpleural nodule ident ified within the right1 upper lobe measures 0.9 cm (series 2, image 19). No pulmonary vascular conges tion or pneumothorax. Minimal subpleural reticular interstitial changes are identified with lower namrata g zone predominance. No honeycombing or traction bronchiectasis. Visualized portions of the upper abdomen appear normal. Fat-containing right adrenal lesion measures 2.0 x 1.1 cm suggestive of an adrenal myelolipoma. IMPRESSION: 1. Nodular consolidative change identified within the medial aspect of the left upper lobe anteriorly measures 2.2 x 1.9 cm. On the background of severe centrilobular pulmonary emphysema, findings are c oncerning for underlying pulmonary malignancy. Consideration may be given for pulmonary infiltrate in the appropriate clinical setting. Recommend further evaluation with PET/CT versus one month follow-u p chest CT. Comparison with prior CT chest imaging would be of benefit if available. 2. No pathologically enlarged thoracic lymph nodes within the limitations of noncontrast examination. 3. Subpleural spiculated nodule identified within the right upper lobe measuring 0.9 cm. Attention on follow-up imaging or PET imaging could be of benefit. 4. Small bilateral pleural effusions with adjacent compressive atelectasis. 5. Small pericardial effusion. 6. 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 Electronically signed by: Trina Linares MD (05/06/2021 9:15 AM) [id number]
--- NOTE | 2021-05-06 09:33 | PDOC ---
[facility] PROGRESS NOTE Date of Service DOS: DATE: 05/05/21 TIME: 09:32 Chief Complaint Chief Complaint Multifactorial respiratory failure with heart failure and pneumonia and history of chronic obstructive pulmonary disease. The patient has been admitted. We will start IV antibiotics, DuoNebs, continue the BiPAP, IV steroids, nebulizer treatments. Consult Pulmonary, consult Cardiology. Home meds. Deep venous thrombosis prophylaxis. Full code. Prognosis long-term, guarded. Cardiac monitoring. P.r.n. Lashell. We gave 1 dose of IV Lasix in the ER and we will continue with that if Cardiology agrees. History of Present Illness History of Present Illness The patient is a pleasant 81-year-old male who presented to the ER with shortness of breath. He came in by ambulance. He states he has been having cough and trouble breathing and feeling like he had the flu for about 3 weeks. He has known COPD. We did a COVID test in the ER, surprisingly negative. His chest x-ray does show possible pneumonia. He also has a BNP level greater than 35,000. His troponin is high at 129. I discussed the case with the ER physician. We are going to admit the patient for respiratory failure and consultation with Pulmonary and Cardiology. 05/04 Patient evaluated examined at bedside. Doing well breathing a little improved. Continue current treatment. Wean O2 as tolerated. 05/05 Late entry for May 05. Patient evaluated examined at bedside. 02 able to be weaned down to 4 L. Will plan on 6-minute walk for tomorrow morning. If he does okay with that could possibly discharge. Vitals/I&O Vitals/I&O: Vital Signs Date Time Temp Pulse Resp B/P (MAP) Pulse Ox O2 Delivery O2 Flow Rate FiO2 05/06/21 08:45 99 Nasal Cannula 4.0 05/06/21 06:10 97.4 82 20 142/82 (102) 97.4 I & O 05/05/21 05/05/21 05/06/21 15:00 23:00 07:00 Intake Total 560 ml 50 ml 560 ml Output Total 450 ml 1000 ml Balance 110 ml 50 ml -440 ml Physical Exam General: Alert, Oriented X3, Cooperative, No acute distress Heart: Regular rate Lungs: Clear Abdomen: Normal bowel sounds, Soft, No tenderness Extremities: No cyanosis Skin: No breakdown Labs Labs: Laboratory Tests Test 05/05/21 13:25 05/05/21 19:00 05/06/21 02:50 Urine Collection Type Unknown Urine Color Yellow Urine Clarity Cloudy Urine pH 7.0 (<5.0-8.0) Urine Specific [place] 1.015 (1.000-1.030) Urine Protein 30 mg/dL (NEG-TRACE) Urine Glucose (UA) Negative mg/dL (NEG) Urine Ketones (Stick) Negative mg/dL (NEG) Urine Blood Trace (NEG) Urine Nitrite Negative (NEG) Urine Bilirubin Negative (NEG) Urine Urobilinogen Dipstick 0.2 mg/dL (0.2 mg/dL) Urine Leukocyte Esterase Small (NEG) Urine RBC 1-2 /HPF (0-2) Urine WBC 1-4 /HPF (0-4) Urine Squamous Epithelial Cells Occ /LPF Urine Bacteria 0 /HPF (0-FEW) Troponin I High Sensitivity 372 ng/L (4-75) White Blood Count 7.7 x10^3/uL (4.0-11.0) Red Blood Count 3.52 x10^6/uL (4.30-5.70) Hemoglobin 10.5 g/dL (13.0-17.5) Hematocrit 32.7 % (39.0-53.0) Mean Corpuscular Volume 93 fL (79-100) Mean Corpuscular Hemoglobin 30 pg (25-35) Mean Corpuscular Hemoglobin Concent 32 g/dL (31-37) Red Cell Distribution Width 15.8 % (11.5-14.5) Platelet Count 172 x10^3/uL (140-400) Neutrophils (%) (Auto) 94 % (31-73) Lymphocytes (%) (Auto) 3 % (24-48) Monocytes (%) (Auto) 3 % (0-9) Eosinophils (%) (Auto) 0 % (0-3) Basophils (%) (Auto) 0 % (0-3) Neutrophils # (Auto) 7.2 x10^3/uL (1.8-7.7) Lymphocytes # (Auto) 0.2 x10^3/uL (1.0-4.8) Monocytes # (Auto) 0.2 x10^3/uL (0.0-1.1) Eosinophils # (Auto) 0.0 x10^3/uL (0.0-0.7) Basophils # (Auto) 0.0 x10^3/uL (0.0-0.2) Sodium Level 143 mmol/L (136-145) Potassium Level 4.8 mmol/L (3.5-5.1) Chloride Level 104 mmol/L (98-107) Carbon Dioxide Level 28 mmol/L (21-32) Anion Gap 11 (6-14) Blood Urea Nitrogen 53 mg/dL (8-26) Creatinine 2.3 mg/dL (0.7-1.3) Estimated GFR (Cockcroft-Gault) 27.4 Glucose Level 121 mg/dL (70-99) Calcium Level 8.7 mg/dL (8.5-10.1) Assessment and Plan Assessmemt and Plan Problems Medical Problems: (1) CHF (congestive heart failure) Status: Acute (2) COPD exacerbation Status: Acute (3) Pneumonia Status: Acute Comment Review of Relevant I have reviewed the following items christopher (where applicable) has been applied. Justifications for Admission Other Justification MIKE MARQUES MD May 06, 2021 09:33
--- NOTE | 2021-05-06 10:41 | PDOC ---
Renal-Progress Notes Subjective Notes Notes NO NEW COMPLAINTS History of Present Illness Hx of present illness STABLE Vitals Vitals Vital Signs Date Time Temp Pulse Resp B/P (MAP) Pulse Ox O2 Delivery O2 Flow Rate FiO2 05/06/21 08:45 99 Nasal Cannula 4.0 05/06/21 06:10 97.4 82 20 142/82 (102) 97.4 Weight Weight [ ] I.O. Intake and Output Intake and Output 05/06/21 07:00 Intake Total 1170 ml Output Total 1450 ml Balance -280 ml Intake Oral 1120 ml IV Total 50 ml Output Urine Total 1450 ml # Voids 1 Labs Labs Laboratory Tests Test 05/05/21 13:25 05/05/21 19:00 05/06/21 02:50 Urine Collection Type Unknown Urine Color Yellow Urine Clarity Cloudy Urine pH 7.0 (<5.0-8.0) Urine Specific [place] 1.015 (1.000-1.030) Urine Protein 30 mg/dL (NEG-TRACE) Urine Glucose (UA) Negative mg/dL (NEG) Urine Ketones (Stick) Negative mg/dL (NEG) Urine Blood Trace (NEG) Urine Nitrite Negative (NEG) Urine Bilirubin Negative (NEG) Urine Urobilinogen Dipstick 0.2 mg/dL (0.2 mg/dL) Urine Leukocyte Esterase Small (NEG) Urine RBC 1-2 /HPF (0-2) Urine WBC 1-4 /HPF (0-4) Urine Squamous Epithelial Cells Occ /LPF Urine Bacteria 0 /HPF (0-FEW) Troponin I High Sensitivity 372 ng/L (4-75) White Blood Count 7.7 x10^3/uL (4.0-11.0) Red Blood Count 3.52 x10^6/uL (4.30-5.70) Hemoglobin 10.5 g/dL (13.0-17.5) Hematocrit 32.7 % (39.0-53.0) Mean Corpuscular Volume 93 fL (79-100) Mean Corpuscular Hemoglobin 30 pg (25-35) Mean Corpuscular Hemoglobin Concent 32 g/dL (31-37) Red Cell Distribution Width 15.8 % (11.5-14.5) Platelet Count 172 x10^3/uL (140-400) Neutrophils (%) (Auto) 94 % (31-73) Lymphocytes (%) (Auto) 3 % (24-48) Monocytes (%) (Auto) 3 % (0-9) Eosinophils (%) (Auto) 0 % (0-3) Basophils (%) (Auto) 0 % (0-3) Neutrophils # (Auto) 7.2 x10^3/uL (1.8-7.7) Lymphocytes # (Auto) 0.2 x10^3/uL (1.0-4.8) Monocytes # (Auto) 0.2 x10^3/uL (0.0-1.1) Eosinophils # (Auto) 0.0 x10^3/uL (0.0-0.7) Basophils # (Auto) 0.0 x10^3/uL (0.0-0.2) Sodium Level 143 mmol/L (136-145) Potassium Level 4.8 mmol/L (3.5-5.1) Chloride Level 104 mmol/L (98-107) Carbon Dioxide Level 28 mmol/L (21-32) Anion Gap 11 (6-14) Blood Urea Nitrogen 53 mg/dL (8-26) Creatinine 2.3 mg/dL (0.7-1.3) Estimated GFR (Cockcroft-Gault) 27.4 Glucose Level 121 mg/dL (70-99) Calcium Level 8.7 mg/dL (8.5-10.1) Micro Micro Microbiology 05/03/21 Blood Culture - Preliminary, Resulted NO GROWTH AFTER 2 DAYS Review of Systems Constitutional: yes: weakness, alert Ears/Nose/Throat: Yes: no symptom reported Eyes: Yes: no symptom reported Pulmonary: Yes dyspnea Cardiovascular: Yes no symptom reported Gastrointestional: Yes: no symptom reported Genitourinary: Yes: no symptom reported Musculoskeletal: Yes: no symptom reported Skin: Yes no symptom reported Psychiatric/Neurological: Yes: no symptom reported Physical Exam General Appearance: no apparent distress Skin: warm Respiratory: bilateral CTA Heart: S1S2 Abdomen: soft, bowel sounds present Genitourinary: bladder flat Extremities: pulses present, atrophy Neurology: alert, oriented Assessment Assessment IMP RENAL FAILURE-ACUTE VS CHRONIC-RENAL SONOGRAM SUGGESTIVE OF CKD PROB CKD STAGE 3B-CR STABLE AT 2.3 ACUTE HYPERCARBIC HYPOXIC RESP FAILURE-PER PULM AECOPD HX TOBACCOISM LEUCOCYTOSIS PNEUMONIA PLAN MOST LIKELY HAS CKD WILL CHECK UA CONT ANTIBIOTICS AND STEROIDS LABS IN AM WILL FOLLOW DILAN MACKENZIE MD May 06, 2021 10:40
[2021-05-06 11:03] VITALS: BP 140/82
--- NOTE | 2021-05-06 11:03 | PDOC ---
CARDIOLOGY PROGRESS NOTE SUBJECTIVE: No acute events overnight. Case discussed with pulmonary service. Case discussed with nursing staff Patient denies any chest pain. He continues to struggle with dyspnea related to his severe COPD OBJECTIVE: Vital Signs/I&O: Vital Signs Date Time Temp Pulse Resp B/P (MAP) Pulse Ox O2 Delivery O2 Flow Rate FiO2 05/06/21 08:45 99 Nasal Cannula 4.0 05/06/21 06:10 97.4 82 20 142/82 (102) 97.4 I & O 05/05/21 05/05/21 05/06/21 15:00 23:00 07:00 Intake Total 560 ml 50 ml 560 ml Output Total 450 ml 1000 ml Balance 110 ml 50 ml -440 ml Objective: On examination he is fairly emaciated. Decreased breath sounds bilaterally Normal heart tones No edema No focal neurologic deficits No rashes on his skin Soft abdomen CURRENT MEDICATIONS: Medications reviewed DIAGNOSTIC TESTING: Echocardiogram pending Cardiac enzymes are downtrending Telemetry is unremarkable Labs: Laboratory Tests 05/06/21 02:50 Laboratory Tests Test 05/05/21 13:25 05/05/21 19:00 05/06/21 02:50 Urine Collection Type Unknown Urine Color Yellow Urine Clarity Cloudy Urine pH 7.0 (<5.0-8.0) Urine Specific [place] 1.015 (1.000-1.030) Urine Protein 30 mg/dL (NEG-TRACE) Urine Glucose (UA) Negative mg/dL (NEG) Urine Ketones (Stick) Negative mg/dL (NEG) Urine Blood Trace (NEG) Urine Nitrite Negative (NEG) Urine Bilirubin Negative (NEG) Urine Urobilinogen Dipstick 0.2 mg/dL (0.2 mg/dL) Urine Leukocyte Esterase Small (NEG) Urine RBC 1-2 /HPF (0-2) Urine WBC 1-4 /HPF (0-4) Urine Squamous Epithelial Cells Occ /LPF Urine Bacteria 0 /HPF (0-FEW) Troponin I High Sensitivity 372 ng/L (4-75) H White Blood Count 7.7 x10^3/uL (4.0-11.0) Red Blood Count 3.52 x10^6/uL (4.30-5.70) L Hemoglobin 10.5 g/dL (13.0-17.5) L Hematocrit 32.7 % (39.0-53.0) L Mean Corpuscular Volume 93 fL (79-100) Mean Corpuscular Hemoglobin 30 pg (25-35) Mean Corpuscular Hemoglobin Concent 32 g/dL (31-37) Red Cell Distribution Width 15.8 % (11.5-14.5) H Platelet Count 172 x10^3/uL (140-400) Neutrophils (%) (Auto) 94 % (31-73) H Lymphocytes (%) (Auto) 3 % (24-48) L Monocytes (%) (Auto) 3 % (0-9) Eosinophils (%) (Auto) 0 % (0-3) Basophils (%) (Auto) 0 % (0-3) Neutrophils # (Auto) 7.2 x10^3/uL (1.8-7.7) Lymphocytes # (Auto) 0.2 x10^3/uL (1.0-4.8) L Monocytes # (Auto) 0.2 x10^3/uL (0.0-1.1) Eosinophils # (Auto) 0.0 x10^3/uL (0.0-0.7) Basophils # (Auto) 0.0 x10^3/uL (0.0-0.2) Sodium Level 143 mmol/L (136-145) Potassium Level 4.8 mmol/L (3.5-5.1) Chloride Level 104 mmol/L (98-107) Carbon Dioxide Level 28 mmol/L (21-32) Anion Gap 11 (6-14) Blood Urea Nitrogen 53 mg/dL (8-26) H Creatinine 2.3 mg/dL (0.7-1.3) H Estimated GFR (Cockcroft-Gault) 27.4 Glucose Level 121 mg/dL (70-99) H Calcium Level 8.7 mg/dL (8.5-10.1) ASSESSMENT: 1. Acute COPD exacerbation 2. Pneumonia 3. Chronic kidney disease with acute kidney injury 4. Type II non-STEMI most likely 5. Chronic respiratory failure PLAN: 1. We still yet do not have the records from [place] for his most re cent echocardiogram and stress test. I again confirmed with the patient today that he had a stress test and echocardiogram which were unremarkable this year. 2. His cardiac enzymes are downtrending he does not have any arrhythmias on telemetry Continue treatment of his pulmonary issues per Dr. Raymond. Await echo to be completed tmrw. Thanks Justicifation of Admission Dx: Justifications for Admission: Justification of Admission Dx: N/A RACHEL GAMEZ MD May 06, 2021 11:03
--- NOTE | 2021-05-06 11:51 | PDOC ---
[employer] PROGRESS NOTE Date of Service DOS: DATE: 05/06/21 TIME: 11:50 Chief Complaint Chief Complaint Multifactorial respiratory failure with heart failure and pneumonia and history of chronic obstructive pulmonary disease. The patient has been admitted. We will start IV antibiotics, DuoNebs, continue the BiPAP, IV steroids, nebulizer treatments. Consult Pulmonary, consult Cardiology. Home meds. Deep venous thrombosis prophylaxis. Full code. Prognosis long-term, guarded. Cardiac monitoring. P.rradha Lobo. . History of Present Illness History of Present Illness The patient is a pleasant 81-year-old male who presented to the ER with shortness of breath. He came in by ambulance. He states he has been having cough and trouble breathing and feeling like he had the flu for about 3 weeks. He has known COPD. We did a COVID test in the ER, surprisingly negative. His chest x-ray does show possible pneumonia. He also has a BNP level greater than 35,000. His troponin is high at 129. I discussed the case with the ER physician. We are going to admit the patient for respiratory failure and consultation with Pulmonary and Cardiology. 05/04 Patient evaluated examined at bedside. Doing well breathing a little improved. Continue current treatment. Wean O2 as tolerated. 05/05 Late entry for May 05. Patient evaluated examined at bedside. 02 able to be weaned down to 4 L. Will plan on 6-minute walk for tomorrow morning. If he does okay with that could possibly discharge. 05/06 Patient evaluated examined at bedside. Doing well but still pretty short of breath on 4.5 L nasal cannula. Will hold off on 6-minute walk until tomorrow. Echo still pending. Cards nephro pulmonary following. Plan of care discussed with bedside RN Vitals/I&O Vitals/I&O: Vital Signs Date Time Temp Pulse Resp B/P (MAP) Pulse Ox O2 Delivery O2 Flow Rate FiO2 05/06/21 11:03 97.6 87 22 140/82 (101) 98 Nasal Cannula 2.0 97.6 I & O 05/05/21 05/05/21 05/06/21 15:00 23:00 07:00 Intake Total 560 ml 50 ml 610 ml Output Total 450 ml 1000 ml Balance 110 ml 50 ml -390 ml Physical Exam General: Alert, Oriented X3, Cooperative, No acute distress Heart: Regular rate Lungs: Clear Abdomen: Normal bowel sounds, Soft, No tenderness Extremities: No cyanosis Skin: No breakdown Labs Labs: Laboratory Tests Test 05/05/21 13:25 05/05/21 19:00 05/06/21 02:50 Urine Collection Type Unknown Urine Color Yellow Urine Clarity Cloudy Urine pH 7.0 (<5.0-8.0) Urine Specific [place] 1.015 (1.000-1.030) Urine Protein 30 mg/dL (NEG-TRACE) Urine Glucose (UA) Negative mg/dL (NEG) Urine Ketones (Stick) Negative mg/dL (NEG) Urine Blood Trace (NEG) Urine Nitrite Negative (NEG) Urine Bilirubin Negative (NEG) Urine Urobilinogen Dipstick 0.2 mg/dL (0.2 mg/dL) Urine Leukocyte Esterase Small (NEG) Urine RBC 1-2 /HPF (0-2) Urine WBC 1-4 /HPF (0-4) Urine Squamous Epithelial Cells Occ /LPF Urine Bacteria 0 /HPF (0-FEW) Troponin I High Sensitivity 372 ng/L (4-75) White Blood Count 7.7 x10^3/uL (4.0-11.0) Red Blood Count 3.52 x10^6/uL (4.30-5.70) Hemoglobin 10.5 g/dL (13.0-17.5) Hematocrit 32.7 % (39.0-53.0) Mean Corpuscular Volume 93 fL (79-100) Mean Corpuscular Hemoglobin 30 pg (25-35) Mean Corpuscular Hemoglobin Concent 32 g/dL (31-37) Red Cell Distribution Width 15.8 % (11.5-14.5) Platelet Count 172 x10^3/uL (140-400) Neutrophils (%) (Auto) 94 % (31-73) Lymphocytes (%) (Auto) 3 % (24-48) Monocytes (%) (Auto) 3 % (0-9) Eosinophils (%) (Auto) 0 % (0-3) Basophils (%) (Auto) 0 % (0-3) Neutrophils # (Auto) 7.2 x10^3/uL (1.8-7.7) Lymphocytes # (Auto) 0.2 x10^3/uL (1.0-4.8) Monocytes # (Auto) 0.2 x10^3/uL (0.0-1.1) Eosinophils # (Auto) 0.0 x10^3/uL (0.0-0.7) Basophils # (Auto) 0.0 x10^3/uL (0.0-0.2) Sodium Level 143 mmol/L (136-145) Potassium Level 4.8 mmol/L (3.5-5.1) Chloride Level 104 mmol/L (98-107) Carbon Dioxide Level 28 mmol/L (21-32) Anion Gap 11 (6-14) Blood Urea Nitrogen 53 mg/dL (8-26) Creatinine 2.3 mg/dL (0.7-1.3) Estimated GFR (Cockcroft-Gault) 27.4 Glucose Level 121 mg/dL (70-99) Calcium Level 8.7 mg/dL (8.5-10.1) Assessment and Plan Assessmemt and Plan Problems Medical Problems: (1) CHF (congestive heart failure) Status: Acute (2) COPD exacerbation Status: Acute (3) Pneumonia Status: Acute Comment Review of Relevant I have reviewed the following items christopher (where applicable) has been applied. Justifications for Admission Other Justification MIKE MARQUES MD May 06, 2021 11:51
[2021-05-06 15:10] VITALS: BP 159/87
[2021-05-06 19:06] VITALS: BP 160/93
[2021-05-06 22:38] VITALS: BP 173/84
[2021-05-07 02:39] VITALS: BP 136/73
[2021-05-07] MEDS: PIPERACILLIN/TAZOBACTAM 2.25 GM in IV NORMAL SALINE 50ML 50 ML IV SCH ×5 (05:56→23:14)
[2021-05-07] MEDS: HEPARIN for SUB-Q USE 5,000 UNIT/ML VIAL. SQ SCH ×3 (06:00→20:29)
[2021-05-07 06:03] LABS: BASO % 0 % (0-3); EOS % 0 % (0-3); HEMATOCRIT 33.5 % (39.0-53.0); HEMOGLOBIN 10.6 g/dL (13.0-17.5); LYMPH # 0.3 x10^3/uL (1.0-4.8); LYMPH % 4 % (24-48); MEAN CORPUSCULAR HEMOGLOBIN 30 pg (25-35); MEAN CORPUSCULAR HGB CONC 32 g/dL (31-37); MEAN CORPUSCULAR VOLUME 93 fL (79-100); MONO # 0.4 x10^3/uL (0.0-1.1); MONO % 5 % (0-9); NEUT # 6.8 x10^3/uL (1.8-7.7); NEUT % 91 % (31-73); PLATELET COUNT 160 x10^3/uL (140-400); RED CELL DISTRIBUTION WIDTH 15.9 % (11.5-14.5); WHITE BLOOD COUNT 7.5 x10^3/uL (4.0-11.0)
[2021-05-07 06:14] LABS: CALCIUM 8.7 mg/dL (8.5-10.1); GFR 32.1; POTASSIUM 4.6 mmol/L (3.5-5.1)
[2021-05-07 07:00] VITALS: BP 163/97
[2021-05-07] MEDS: IPRATRPIUM/ALBUTEROL 0.5/2.5MG 3 ML NEBU. NEB SCH ×4 (07:07→20:00)
[2021-05-07] MEDS: ASPIRIN ENTERIC COATED 81 MG TABLET.DR. PO SCH (09:04)
[2021-05-07] MEDS: LACTOBACILLUS RHAMNOSUS GG 1 CAPSULE. PO SCH ×2 (09:04→20:28)
[2021-05-07] MEDS: methylPREDNISolone SOD SUCC PF 40 MG/ML VIAL. IV SCH ×2 (09:04→20:28)
--- NOTE | 2021-05-07 10:08 | PDOC ---
PULMONARY PROGRESS NOTES DATE: 05/07/21 TIME: 10:06 Subjective Feels better. Denies any shortness of breath.. Remains on 4 L oxygen via nasal cannula. Wants to go home. Vitals Vital Signs Date Time Temp Pulse Resp B/P (MAP) Pulse Ox O2 Delivery O2 Flow Rate FiO2 05/07/21 08:00 Nasal Cannula 2.0 05/07/21 07:10 98 05/07/21 07:00 98.0 94 18 163/97 (119) 98.0 General: Alert, No acute distress Lungs: Clear Cardiovascular: S1 Abdomen: Soft Neuro Exam: Alert Extremities: No Edema Skin: Warm Labs Laboratory Tests Test 05/05/21 13:25 05/05/21 19:00 05/06/21 02:50 05/07/21 04:05 Urine Collection Type Unknown Urine Color Yellow Urine Clarity Cloudy Urine pH 7.0 (<5.0-8.0) Urine Specific [place] 1.015 (1.000-1.030) Urine Protein 30 mg/dL (NEG-TRACE) Urine Glucose (UA) Negative mg/dL (NEG) Urine Ketones (Stick) Negative mg/dL (NEG) Urine Blood Trace (NEG) Urine Nitrite Negative (NEG) Urine Bilirubin Negative (NEG) Urine Urobilinogen Dipstick 0.2 mg/dL (0.2 mg/dL) Urine Leukocyte Esterase Small (NEG) Urine RBC 1-2 /HPF (0-2) Urine WBC 1-4 /HPF (0-4) Urine Squamous Epithelial Cells Occ /LPF Urine Bacteria 0 /HPF (0-FEW) Troponin I High Sensitivity 372 ng/L (4-75) White Blood Count 7.7 x10^3/uL (4.0-11.0) 7.5 x10^3/uL (4.0-11.0) Red Blood Count 3.52 x10^6/uL (4.30-5.70) 3.60 x10^6/uL (4.30-5.70) Hemoglobin 10.5 g/dL (13.0-17.5) 10.6 g/dL (13.0-17.5) Hematocrit 32.7 % (39.0-53.0) 33.5 % (39.0-53.0) Mean Corpuscular Volume 93 fL (79-100) 93 fL (79-100) Mean Corpuscular Hemoglobin 30 pg (25-35) 30 pg (25-35) Mean Corpuscular Hemoglobin Concent 32 g/dL (31-37) 32 g/dL (31-37) Red Cell Distribution Width 15.8 % (11.5-14.5) 15.9 % (11.5-14.5) Platelet Count 172 x10^3/uL (140-400) 160 x10^3/uL (140-400) Neutrophils (%) (Auto) 94 % (31-73) 91 % (31-73) Lymphocytes (%) (Auto) 3 % (24-48) 4 % (24-48) Monocytes (%) (Auto) 3 % (0-9) 5 % (0-9) Eosinophils (%) (Auto) 0 % (0-3) 0 % (0-3) Basophils (%) (Auto) 0 % (0-3) 0 % (0-3) Neutrophils # (Auto) 7.2 x10^3/uL (1.8-7.7) 6.8 x10^3/uL (1.8-7.7) Lymphocytes # (Auto) 0.2 x10^3/uL (1.0-4.8) 0.3 x10^3/uL (1.0-4.8) Monocytes # (Auto) 0.2 x10^3/uL (0.0-1.1) 0.4 x10^3/uL (0.0-1.1) Eosinophils # (Auto) 0.0 x10^3/uL (0.0-0.7) 0.0 x10^3/uL (0.0-0.7) Basophils # (Auto) 0.0 x10^3/uL (0.0-0.2) 0.0 x10^3/uL (0.0-0.2) Sodium Level 143 mmol/L (136-145) 143 mmol/L (136-145) Potassium Level 4.8 mmol/L (3.5-5.1) 4.6 mmol/L (3.5-5.1) Chloride Level 104 mmol/L (98-107) 106 mmol/L (98-107) Carbon Dioxide Level 28 mmol/L (21-32) 26 mmol/L (21-32) Anion Gap 11 (6-14) 11 (6-14) Blood Urea Nitrogen 53 mg/dL (8-26) 46 mg/dL (8-26) Creatinine 2.3 mg/dL (0.7-1.3) 2.0 mg/dL (0.7-1.3) Estimated GFR (Cockcroft-Gault) 27.4 32.1 Glucose Level 121 mg/dL (70-99) 118 mg/dL (70-99) Calcium Level 8.7 mg/dL (8.5-10.1) 8.7 mg/dL (8.5-10.1) Laboratory Tests Test 05/07/21 04:05 White Blood Count 7.5 x10^3/uL (4.0-11.0) Red Blood Count 3.60 x10^6/uL (4.30-5.70) Hemoglobin 10.6 g/dL (13.0-17.5) Hematocrit 33.5 % (39.0-53.0) Mean Corpuscular Volume 93 fL (79-100) Mean Corpuscular Hemoglobin 30 pg (25-35) Mean Corpuscular Hemoglobin Concent 32 g/dL (31-37) Red Cell Distribution Width 15.9 % (11.5-14.5) Platelet Count 160 x10^3/uL (140-400) Neutrophils (%) (Auto) 91 % (31-73) Lymphocytes (%) (Auto) 4 % (24-48) Monocytes (%) (Auto) 5 % (0-9) Eosinophils (%) (Auto) 0 % (0-3) Basophils (%) (Auto) 0 % (0-3) Neutrophils # (Auto) 6.8 x10^3/uL (1.8-7.7) Lymphocytes # (Auto) 0.3 x10^3/uL (1.0-4.8) Monocytes # (Auto) 0.4 x10^3/uL (0.0-1.1) Eosinophils # (Auto) 0.0 x10^3/uL (0.0-0.7) Basophils # (Auto) 0.0 x10^3/uL (0.0-0.2) Sodium Level 143 mmol/L (136-145) Potassium Level 4.6 mmol/L (3.5-5.1) Chloride Level 106 mmol/L (98-107) Carbon Dioxide Level 26 mmol/L (21-32) Anion Gap 11 (6-14) Blood Urea Nitrogen 46 mg/dL (8-26) Creatinine 2.0 mg/dL (0.7-1.3) Estimated GFR (Cockcroft-Gault) 32.1 Glucose Level 118 mg/dL (70-99) Calcium Level 8.7 mg/dL (8.5-10.1) Comments CT CHEST: 1. Nodular consolidative change identified within the medial aspect of the left upper lobe anteriorly measures 2.2 x 1.9 cm. On the background of severe centrilobular pulmonary emphysema, findings are concerning for underlying pulmonary malignancy. Consideration may be given for pulmonary infiltrate in the appropriate clinical setting. Recommend further evaluation with PET/CT versus one month follow-up chest CT. Comparison with prior CT chest imaging would be of benefit if available. 2. No pathologically enlarged thoracic lymph nodes within the limitations of noncontrast examination. 3. Subpleural spiculated nodule identified within the right upper lobe measuring 0.9 cm. Attention on follow-up imaging or PET imaging could be of benefit. 4. Small bilateral pleural effusions with adjacent compressive atelectasis. 5. Small pericardial effusion. 6. 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 Electronically signed by: Trina Linares MD (05/06/2021 9:15 AM) [id number] Impression . 1. Acute hypoxic and hypercapnic respiratory failure, secondary to multifactorial etiologies and includes combination of acute exacerbation of chronic obstructive pulmonary disease, acute encephalopathy, pneumonia and congestive heart failure. 2. Acute exacerbation of chronic obstructive pulmonary disease in a patient who has smoked for 50+ years and started smoking again. 3. Right lower lobe pneumonia, possible aspiration since he choked on food recently. 4. Abnormal chest x-ray, secondary to combination of pneumonia in the right lower lobe and suspect congestive heart failure. Difficult to rule out any interstitial lung disease as there is no recent x-ray available for comparison. ProBNP is markedly high. 5. Acute kidney injury. Versus CKD 6. Leukocytosis, likely secondary to pneumonia. 7. Metabolic acidosis due to ALBA. 8. ABNORMAL CT CHEST/ Nodular consolidative change identified within the medial aspect of the left upper lobe anteriorly measures 2.2 x 1.9 cm. / 9 mm pleural based nodule RUL Plan . 1. Clinically improving. 2. We will gradually wean FiO2 based on the saturations. Keep them 92% and above. 3. Continue empiric antibiotics, Zosyn. Can be changed to p.o. at discharge 4. ABNORMAL CT CHEST/ Nodular consolidative change identified within the medial aspect of the left upper lobe anteriorly measures 2.2 x 1.9 cm. 9 mm pleural based nodule RUL. Improving RLL pneumonia. will need 3 month f/u ct chest. Patient states that he is followed at the [facility]. I have informed him about the abnormal CT chest and need for follow-up CT chest. He prefers to have it done at [facility]. I have informed the nursing staff to give him a copy of the CT chest report. 5. IV steroids with taper 6. Status post Lasix. We will hold further doses due to ALBA. 7. Follow Renal recommendations. 8. Smoking cessation counseling provided. 9. Monitor BUN and creatinine. 10. Lovenox for DVT prophylaxis. 11. Discussed with RN. 12 echo pending. 13. Patient is insisting in going home. He would need a 6-minute walk test on the day of discharge. Discussed with RN. ALISTAIR LEDESMA MD May 07, 2021 10:08
[2021-05-07 11:00] VITALS: BP 139/98
--- NOTE | 2021-05-07 11:16 | PDOC ---
[employer] PROGRESS NOTE Date of Service DOS: DATE: 05/07/21 TIME: 11:15 Chief Complaint Chief Complaint Multifactorial respiratory failure with heart failure and pneumonia and history of chronic obstructive pulmonary disease. The patient has been admitted. We will start IV antibiotics, DuoNebs, continue the BiPAP, IV steroids, nebulizer treatments. Consult Pulmonary, consult Cardiology. Home meds. Deep venous thrombosis prophylaxis. Full code. Prognosis long-term, guarded. Cardiac monitoring. P.rradha Lobo. . History of Present Illness History of Present Illness The patient is a pleasant 81-year-old male who presented to the ER with shortness of breath. He came in by ambulance. He states he has been having cough and trouble breathing and feeling like he had the flu for about 3 weeks. He has known COPD. We did a COVID test in the ER, surprisingly negative. His chest x-ray does show possible pneumonia. He also has a BNP level greater than 35,000. His troponin is high at 129. I discussed the case with the ER physician. We are going to admit the patient for respiratory failure and consultation with Pulmonary and Cardiology. 05/04 Patient evaluated examined at bedside. Doing well breathing a little improved. Continue current treatment. Wean O2 as tolerated. 05/05 Late entry for May 05. Patient evaluated examined at bedside. 02 able to be weaned down to 4 L. Will plan on 6-minute walk for tomorrow morning. If he does okay with that could possibly discharge. 05/06 Patient evaluated examined at bedside. Doing well but still pretty short of breath on 4.5 L nasal cannula. Will hold off on 6-minute walk until tomorrow. Echo still pending. Cards nephro pulmonary following. Plan of care discussed with bedside RN 05/07 Patient evaluated examined at bedside. Down to 2 L nasal cannula. Try 6-minute walk today. Echo still needs to be completed. Creatinine improving. If patient does well with 6-minute walk and echo done likely can discharge later today. Vitals/I&O Vitals/I&O: Vital Signs Date Time Temp Pulse Resp B/P (MAP) Pulse Ox O2 Delivery O2 Flow Rate FiO2 05/07/21 11:09 98 Nasal Cannula 2.0 05/07/21 07:00 98.0 94 18 163/97 (119) 98.0 I & O 11/05/06/21 05/07/21 15:00 23:00 07:00 Intake Total 50 ml 750 ml 400 ml Output Total 900 ml 300 ml Balance 50 ml -150 ml 100 ml Physical Exam General: Alert, Oriented X3, Cooperative, No acute distress Heart: Regular rate Lungs: Clear Abdomen: Normal bowel sounds, Soft, No tenderness Extremities: No cyanosis Skin: No breakdown Labs Labs: Laboratory Tests Test 05/07/21 04:05 White Blood Count 7.5 x10^3/uL (4.0-11.0) Red Blood Count 3.60 x10^6/uL (4.30-5.70) Hemoglobin 10.6 g/dL (13.0-17.5) Hematocrit 33.5 % (39.0-53.0) Mean Corpuscular Volume 93 fL (79-100) Mean Corpuscular Hemoglobin 30 pg (25-35) Mean Corpuscular Hemoglobin Concent 32 g/dL (31-37) Red Cell Distribution Width 15.9 % (11.5-14.5) Platelet Count 160 x10^3/uL (140-400) Neutrophils (%) (Auto) 91 % (31-73) Lymphocytes (%) (Auto) 4 % (24-48) Monocytes (%) (Auto) 5 % (0-9) Eosinophils (%) (Auto) 0 % (0-3) Basophils (%) (Auto) 0 % (0-3) Neutrophils # (Auto) 6.8 x10^3/uL (1.8-7.7) Lymphocytes # (Auto) 0.3 x10^3/uL (1.0-4.8) Monocytes # (Auto) 0.4 x10^3/uL (0.0-1.1) Eosinophils # (Auto) 0.0 x10^3/uL (0.0-0.7) Basophils # (Auto) 0.0 x10^3/uL (0.0-0.2) Sodium Level 143 mmol/L (136-145) Potassium Level 4.6 mmol/L (3.5-5.1) Chloride Level 106 mmol/L (98-107) Carbon Dioxide Level 26 mmol/L (21-32) Anion Gap 11 (6-14) Blood Urea Nitrogen 46 mg/dL (8-26) Creatinine 2.0 mg/dL (0.7-1.3) Estimated GFR (Cockcroft-Gault) 32.1 Glucose Level 118 mg/dL (70-99) Calcium Level 8.7 mg/dL (8.5-10.1) Assessment and Plan Assessmemt and Plan Problems Medical Problems: (1) CHF (congestive heart failure) Status: Acute (2) COPD exacerbation Status: Acute (3) Pneumonia Status: Acute Comment Review of Relevant I have reviewed the following items christopher (where applicable) has been applied. Justifications for Admission Other Justification MIKE MARQUES MD May 07, 2021 11:16
--- NOTE | 2021-05-07 11:31 | PDOC ---
Renal-Progress Notes Subjective Notes Notes NO NEW COMPLAINTS History of Present Illness Hx of present illness STABLE Vitals Vitals Vital Signs Date Time Temp Pulse Resp B/P (MAP) Pulse Ox O2 Delivery O2 Flow Rate FiO2 05/07/21 11:09 98 Nasal Cannula 2.0 05/07/21 07:00 98.0 94 18 163/97 (119) 98.0 Weight Weight [ ] I.O. Intake and Output Intake and Output 05/07/21 07:00 Intake Total 1200 ml Output Total 1200 ml Balance 0 ml Intake Oral 1100 ml IV Total 100 ml Output Urine Total 1200 ml Labs Labs Laboratory Tests Test 05/07/21 04:05 White Blood Count 7.5 x10^3/uL (4.0-11.0) Red Blood Count 3.60 x10^6/uL (4.30-5.70) Hemoglobin 10.6 g/dL (13.0-17.5) Hematocrit 33.5 % (39.0-53.0) Mean Corpuscular Volume 93 fL (79-100) Mean Corpuscular Hemoglobin 30 pg (25-35) Mean Corpuscular Hemoglobin Concent 32 g/dL (31-37) Red Cell Distribution Width 15.9 % (11.5-14.5) Platelet Count 160 x10^3/uL (140-400) Neutrophils (%) (Auto) 91 % (31-73) Lymphocytes (%) (Auto) 4 % (24-48) Monocytes (%) (Auto) 5 % (0-9) Eosinophils (%) (Auto) 0 % (0-3) Basophils (%) (Auto) 0 % (0-3) Neutrophils # (Auto) 6.8 x10^3/uL (1.8-7.7) Lymphocytes # (Auto) 0.3 x10^3/uL (1.0-4.8) Monocytes # (Auto) 0.4 x10^3/uL (0.0-1.1) Eosinophils # (Auto) 0.0 x10^3/uL (0.0-0.7) Basophils # (Auto) 0.0 x10^3/uL (0.0-0.2) Sodium Level 143 mmol/L (136-145) Potassium Level 4.6 mmol/L (3.5-5.1) Chloride Level 106 mmol/L (98-107) Carbon Dioxide Level 26 mmol/L (21-32) Anion Gap 11 (6-14) Blood Urea Nitrogen 46 mg/dL (8-26) Creatinine 2.0 mg/dL (0.7-1.3) Estimated GFR (Cockcroft-Gault) 32.1 Glucose Level 118 mg/dL (70-99) Calcium Level 8.7 mg/dL (8.5-10.1) Micro Micro Microbiology 05/03/21 Blood Culture - Preliminary, Resulted NO GROWTH AFTER 3 DAYS Review of Systems Constitutional: yes: weakness, alert Ears/Nose/Throat: Yes: no symptom reported Eyes: Yes: no symptom reported Pulmonary: Yes dyspnea Cardiovascular: Yes no symptom reported Gastrointestional: Yes: no symptom reported Genitourinary: Yes: no symptom reported Musculoskeletal: Yes: no symptom reported Skin: Yes no symptom reported Psychiatric/Neurological: Yes: no symptom reported Physical Exam General Appearance: no apparent distress Skin: warm Respiratory: bilateral CTA Heart: S1S2 Abdomen: soft, bowel sounds present Genitourinary: bladder flat Extremities: pulses present, atrophy Neurology: alert, oriented Assessment Assessment IMP RENAL [id number] SONOGRAM SUGGESTIVE OF CKD PROB CKD STAGE 3B-CR STABLE AT 2.0 ACUTE HYPERCARBIC HYPOXIC RESP FAILURE-PER PULM AECOPD HX TOBACCOISM LEUCOCYTOSIS PNEUMONIA PLAN MOST LIKELY HAS CKD CONT ANTIBIOTICS AND STEROIDS LABS IN AM WILL FOLLOW DILAN MACKENZIE MD May 07, 2021 11:31
--- NOTE | 2021-05-07 12:10 | PDOC ---
[facility] DIETARY SERVICES DIRECTOR 05/07/21 1210: CARDIO Progress Notes Date and Time Date of Service 05/07/21 Time of Evaluation 1200 Subjective Subjective: No Chest Pain, Other (breathing improved ) Vitals Vitals Vital Signs Date Time Temp Pulse Resp B/P (MAP) Pulse Ox O2 Delivery O2 Flow Rate FiO2 05/07/21 11:09 98 Nasal Cannula 2.0 05/07/21 07:00 98.0 94 18 163/97 (119) 98.0 Weight Weight [ ] Input and Output Intake and Output Intake and Output 05/07/21 07:00 Intake Total 1200 ml Output Total 1200 ml Balance 0 ml Intake Oral 1100 ml IV Total 100 ml Output Urine Total 1200 ml Laboratory Labs Laboratory Tests Test 05/07/21 04:05 White Blood Count 7.5 x10^3/uL (4.0-11.0) Red Blood Count 3.60 x10^6/uL (4.30-5.70) Hemoglobin 10.6 g/dL (13.0-17.5) Hematocrit 33.5 % (39.0-53.0) Mean Corpuscular Volume 93 fL (79-100) Mean Corpuscular Hemoglobin 30 pg (25-35) Mean Corpuscular Hemoglobin Concent 32 g/dL (31-37) Red Cell Distribution Width 15.9 % (11.5-14.5) Platelet Count 160 x10^3/uL (140-400) Neutrophils (%) (Auto) 91 % (31-73) Lymphocytes (%) (Auto) 4 % (24-48) Monocytes (%) (Auto) 5 % (0-9) Eosinophils (%) (Auto) 0 % (0-3) Basophils (%) (Auto) 0 % (0-3) Neutrophils # (Auto) 6.8 x10^3/uL (1.8-7.7) Lymphocytes # (Auto) 0.3 x10^3/uL (1.0-4.8) Monocytes # (Auto) 0.4 x10^3/uL (0.0-1.1) Eosinophils # (Auto) 0.0 x10^3/uL (0.0-0.7) Basophils # (Auto) 0.0 x10^3/uL (0.0-0.2) Sodium Level 143 mmol/L (136-145) Potassium Level 4.6 mmol/L (3.5-5.1) Chloride Level 106 mmol/L (98-107) Carbon Dioxide Level 26 mmol/L (21-32) Anion Gap 11 (6-14) Blood Urea Nitrogen 46 mg/dL (8-26) Creatinine 2.0 mg/dL (0.7-1.3) Estimated GFR (Cockcroft-Gault) 32.1 Glucose Level 118 mg/dL (70-99) Calcium Level 8.7 mg/dL (8.5-10.1) Microbiology Micro Microbiology 05/03/21 Blood Culture - Preliminary, Resulted NO GROWTH AFTER 3 DAYS Review of Systems Constitutional: yes: weakness, alert Ears/Nose/Throat: Yes: no symptom reported Eyes: Yes: no symptom reported Pulmonary: Yes dyspnea Cardiovascular: Yes no symptom reported Gastrointestional: Yes: no symptom reported Genitourinary: Yes: no symptom reported Musculoskeletal: Yes: no symptom reported Skin: Yes no symptom reported Psychiatric/Neurological: Yes: no symptom reported Physical Exam HEENT: Neck Supple W Full Motion Chest: Symmetric LUNGS: Other (diminished bases) Heart: RRR Abdomen: Soft N/T Neurology: alert, oriented, follow commands Assessment Assessment 1. Acute on chronic respiratory failure secondary to AECOPD, probable PNA, and CHF exacerbation 2. Acute on chronic CHF with probable diastolic dysfunction; s/p IV Lasix 3. ALBA on CKD; Cr better 4. NSTEMI: high sensitivity trop peak 1662. Most probably type II, demand ischemia. 5. Leukocytosis Recommendations ASA therapy Lipids Echo pending Ongoing lung optimization, treatment of PNA Supportive care Probable outpatient ischemic evaluation Justicifation of Admission Dx: Justifications for Admission: Justification of Admission Dx: N/A RACHEL GAMEZ MD 05/07/21 1708: CARDIO Progress Notes Plan Plan Patient seen and examined. Agree with above nurse practitioner note. The patient is currently very adamant that he does not want any further care and wants to be discharged. I explained to the patient the finding of his cardiomyopathy on his echocardiogram. Despite this he does not want any further care. I suspect the patient has a element of denial regarding his medical issues. [facility] Please call with any further questions. [facility] APRN May 07, 2021 12:10 RACHEL GAMEZ MD May 07, 2021 17:08
--- NOTE | 2021-05-07 13:29 | NUR ---
SS following for discharge planning. SS reviewed pt chart and discussed with pt RN. Pt is from home and is currently requiring oxygen at two liters nasal canula. COVID19 negative. Pt on IV Zosyn and IV Solu-Medrol. Cardiology, Nephrology, and Pulmonology following. Pt has no home oxygen. Six minute walk ordered. SS will continue to follow for discharge planning.
[2021-05-07 15:00] VITALS: BP 155/98
--- NOTE | 2021-05-07 16:30 | CARD ---
MR#: [id number] Date of Study: 05/07/2021 Ordering Physician: ALISTAIR LEDESMA, Referring Physician: ALISTAIR LEDESMA, Tech: Nya Zhong [facility] APPROVED REPORT EXAM: Two-dimensional and M-mode echocardiogram with Doppler and color Doppler. Other Information Quality : AverageHR: 94bpm Rhythm : NSR INDICATION Dyspnea RISK FACTORS Smoking 2D DIMENSIONS Left Atrium(2D)4.6 (1.6-4.0cm)IVSd1.5 (0.7-1.1cm) Aortic Root(2D)3.6 (2.0-3.7cm)LVDd5.0 (3.9-5.9cm) LVOT Diameter2.2 (1.8-2.4cm)PWd1.6 (0.7-1.1cm) LVDs4.3 (2.5-4.0cm)FS (%) 13.5 % SV33.7 ml Aortic Valve AoV Peak Osman.114.8cm/sAoV VTI22.3cm AO Peak GR.5.3mmHgLVOT Peak Osman.103.8cm/s AO Mean GR.3mmHgAVA (VMAX)3.30cm2 Mitral Valve MV E Odkubdfd628.9cm/sMV DECEL IRIX099zt MV A Rajxplxh454.0cm/sE/A Ratio1.1 Pulmonary Valve PV Peak Wtoreqfe165.8cm/s LEFT VENTRICLE The Left Ventricle is mildly dilated. There is moderate concentric left ventricular hypertrophy. The ejection fraction is severely impaired. Estimated ejection fraction is 25%. There is severe global hy pokinesis of the left ventricle. Transmitral Doppler flow pattern is Grade II-pseudonormal filling dy namics. RIGHT VENTRICLE The right ventricle is normal size. There is normal right ventricular wall thickness. The right ventr icular systolic function is normal. ATRIA The left atrium is mildly dilated. The right atrium size is normal. The interatrial septum is intact with no evidence for an atrial septal defect or patent foramen ovale as noted on 2-D or Doppler imagi ng. AORTIC VALVE The aortic valve is normal in structure and function. Doppler and Color Flow revealed no significant aortic regurgitation. There is no significant aortic valvular stenosis. MITRAL VALVE The mitral valve is normal in structure and function. There is no evidence of mitral valve prolapse. There is no mitral valve stenosis. Doppler and Color-flow revealed mild to moderate mitral regurgitat ion. TRICUSPID VALVE The tricuspid valve is normal in structure and function. Doppler and Color Flow revealed trace tricus pid valve regurgitation. There is no tricuspid valve stenosis. PULMONIC VALVE The pulmonary valve is normal in structure and function. Doppler and Color Flow revealed no pulmonic valvular regurgitation. GREAT VESSELS The aortic root is normal size. The IVC is normal in size and collapses >50% with inspiration. PERICARDIAL EFFUSION There is a small pericardial effusion with no hemodynamic compromise. Critical Notification Critical Value: No <Conclusion> The Left Ventricle is mildly dilated. The ejection fraction is severely impaired. Estimated ejection fraction is 25%. There is severe global hypokinesis of the left ventricle. There is moderate concentric left ventricular hypertrophy. Doppler and Color Flow revealed no significant aortic regurgitation. There is no significant aortic valvular stenosis. Doppler and Color-flow revealed mild to moderate mitral regurgitation. Doppler and Color Flow revealed trace tricuspid valve regurgitation. There is a small pericardial effusion with no hemodynamic compromise. Signed by : Basilio Nelson MD Electronically Approved : 05/07/2021 16:30:25
[2021-05-07 16:55] LABS: CHOLESTEROL/HDL RATIO 3.5
[2021-05-07 20:10] VITALS: BP 166/94
[2021-05-07 23:20] VITALS: BP 178/86
[2021-05-08 03:10] VITALS: BP 160/81
[2021-05-08] MEDS: PIPERACILLIN/TAZOBACTAM 2.25 GM in IV NORMAL SALINE 50ML 50 ML IV SCH (05:45)
[2021-05-08] MEDS: HEPARIN for SUB-Q USE 5,000 UNIT/ML VIAL. SQ SCH (05:46)
[2021-05-08 06:21] LABS: BASO % 0 % (0-3); EOS % 0 % (0-3); HEMOGLOBIN 11.1 g/dL (13.0-17.5); LYMPH # 0.2 x10^3/uL (1.0-4.8); LYMPH % 3 % (24-48); MEAN CORPUSCULAR HEMOGLOBIN 30 pg (25-35); MEAN CORPUSCULAR HGB CONC 32 g/dL (31-37); MEAN CORPUSCULAR VOLUME 93 fL (79-100); MONO # 0.2 x10^3/uL (0.0-1.1); MONO % 4 % (0-9); NEUT # 6.2 x10^3/uL (1.8-7.7); NEUT % 93 % (31-73); PLATELET COUNT 173 x10^3/uL (140-400); RED BLOOD COUNT 3.77 x10^6/uL (4.30-5.70); RED CELL DISTRIBUTION WIDTH 15.8 % (11.5-14.5); WHITE BLOOD COUNT 6.7 x10^3/uL (4.0-11.0)
[2021-05-08 06:54] LABS: CREATININE 1.9 mg/dL (0.7-1.3); GFR 34.1; POTASSIUM 4.6 mmol/L (3.5-5.1)
[2021-05-08 07:00] VITALS: BP 146/84
[2021-05-08] MEDS: IPRATRPIUM/ALBUTEROL 0.5/2.5MG 3 ML NEBU. NEB SCH (07:20)
[2021-05-08] MEDS: ASPIRIN ENTERIC COATED 81 MG TABLET.DR. PO SCH (08:00)
--- NOTE | 2021-05-08 08:35 | PDOC ---
PULMONARY PROGRESS NOTES DATE: 05/08/21 TIME: 08:35 Subjective Feels better. Denies any shortness of breath.. Remains on 4 L oxygen via nasal cannula. Wants to go home. Vitals Vital Signs Date Time Temp Pulse Resp B/P (MAP) Pulse Ox O2 Delivery O2 Flow Rate FiO2 05/08/21 07:21 100 Nasal Cannula 1.0 05/08/21 07:00 97.5 86 18 146/84 (104) 97.5 General: Alert, No acute distress Lungs: Clear Cardiovascular: S1 Abdomen: Soft Neuro Exam: Alert Extremities: No Edema Skin: Warm Labs Laboratory Tests Test 05/07/21 04:05 05/08/21 04:20 White Blood Count 7.5 x10^3/uL (4.0-11.0) 6.7 x10^3/uL (4.0-11.0) Red Blood Count 3.60 x10^6/uL (4.30-5.70) 3.77 x10^6/uL (4.30-5.70) Hemoglobin 10.6 g/dL (13.0-17.5) 11.1 g/dL (13.0-17.5) Hematocrit 33.5 % (39.0-53.0) 35.0 % (39.0-53.0) Mean Corpuscular Volume 93 fL (79-100) 93 fL (79-100) Mean Corpuscular Hemoglobin 30 pg (25-35) 30 pg (25-35) Mean Corpuscular Hemoglobin Concent 32 g/dL (31-37) 32 g/dL (31-37) Red Cell Distribution Width 15.9 % (11.5-14.5) 15.8 % (11.5-14.5) Platelet Count 160 x10^3/uL (140-400) 173 x10^3/uL (140-400) Neutrophils (%) (Auto) 91 % (31-73) 93 % (31-73) Lymphocytes (%) (Auto) 4 % (24-48) 3 % (24-48) Monocytes (%) (Auto) 5 % (0-9) 4 % (0-9) Eosinophils (%) (Auto) 0 % (0-3) 0 % (0-3) Basophils (%) (Auto) 0 % (0-3) 0 % (0-3) Neutrophils # (Auto) 6.8 x10^3/uL (1.8-7.7) 6.2 x10^3/uL (1.8-7.7) Lymphocytes # (Auto) 0.3 x10^3/uL (1.0-4.8) 0.2 x10^3/uL (1.0-4.8) Monocytes # (Auto) 0.4 x10^3/uL (0.0-1.1) 0.2 x10^3/uL (0.0-1.1) Eosinophils # (Auto) 0.0 x10^3/uL (0.0-0.7) 0.0 x10^3/uL (0.0-0.7) Basophils # (Auto) 0.0 x10^3/uL (0.0-0.2) 0.0 x10^3/uL (0.0-0.2) Sodium Level 143 mmol/L (136-145) 145 mmol/L (136-145) Potassium Level 4.6 mmol/L (3.5-5.1) 4.6 mmol/L (3.5-5.1) Chloride Level 106 mmol/L (98-107) 107 mmol/L (98-107) Carbon Dioxide Level 26 mmol/L (21-32) 26 mmol/L (21-32) Anion Gap 11 (6-14) 12 (6-14) Blood Urea Nitrogen 46 mg/dL (8-26) 42 mg/dL (8-26) Creatinine 2.0 mg/dL (0.7-1.3) 1.9 mg/dL (0.7-1.3) Estimated GFR (Cockcroft-Gault) 32.1 34.1 Glucose Level 118 mg/dL (70-99) 128 mg/dL (70-99) Calcium Level 8.7 mg/dL (8.5-10.1) 9.0 mg/dL (8.5-10.1) Triglycerides Level 150 mg/dL (0-150) Cholesterol Level 170 mg/dL (0-200) LDL Cholesterol, Calculated 91 mg/dL (0-100) VLDL Cholesterol, Calculated 30 mg/dL (0-40) Non-HDL Cholesterol Calculated 121 mg/dL (0-129) HDL Cholesterol 49 mg/dL (40-60) Cholesterol/HDL Ratio 3.5 Laboratory Tests Test 05/08/21 04:20 White Blood Count 6.7 x10^3/uL (4.0-11.0) Red Blood Count 3.77 x10^6/uL (4.30-5.70) Hemoglobin 11.1 g/dL (13.0-17.5) Hematocrit 35.0 % (39.0-53.0) Mean Corpuscular Volume 93 fL (79-100) Mean Corpuscular Hemoglobin 30 pg (25-35) Mean Corpuscular Hemoglobin Concent 32 g/dL (31-37) Red Cell Distribution Width 15.8 % (11.5-14.5) Platelet Count 173 x10^3/uL (140-400) Neutrophils (%) (Auto) 93 % (31-73) Lymphocytes (%) (Auto) 3 % (24-48) Monocytes (%) (Auto) 4 % (0-9) Eosinophils (%) (Auto) 0 % (0-3) Basophils (%) (Auto) 0 % (0-3) Neutrophils # (Auto) 6.2 x10^3/uL (1.8-7.7) Lymphocytes # (Auto) 0.2 x10^3/uL (1.0-4.8) Monocytes # (Auto) 0.2 x10^3/uL (0.0-1.1) Eosinophils # (Auto) 0.0 x10^3/uL (0.0-0.7) Basophils # (Auto) 0.0 x10^3/uL (0.0-0.2) Sodium Level 145 mmol/L (136-145) Potassium Level 4.6 mmol/L (3.5-5.1) Chloride Level 107 mmol/L (98-107) Carbon Dioxide Level 26 mmol/L (21-32) Anion Gap 12 (6-14) Blood Urea Nitrogen 42 mg/dL (8-26) Creatinine 1.9 mg/dL (0.7-1.3) Estimated GFR (Cockcroft-Gault) 34.1 Glucose Level 128 mg/dL (70-99) Calcium Level 9.0 mg/dL (8.5-10.1) Comments CT CHEST: 1. Nodular consolidative change identified within the medial aspect of the left upper lobe anteriorly measures 2.2 x 1.9 cm. On the background of severe centrilobular pulmonary emphysema, findings are concerning for underlying pulmonary malignancy. Consideration may be given for pulmonary infiltrate in the appropriate clinical setting. Recommend further evaluation with PET/CT versus one month follow-up chest CT. Comparison with prior CT chest imaging would be of benefit if available. 2. No pathologically enlarged thoracic lymph nodes within the limitations of noncontrast examination. 3. Subpleural spiculated nodule identified within the right upper lobe measuring 0.9 cm. Attention on follow-up imaging or PET imaging could be of benefit. 4. Small bilateral pleural effusions with adjacent compressive atelectasis. 5. Small pericardial effusion. 6. 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 Electronically signed by: Trina Linares MD (05/06/2021 9:15 AM) [id number] Impression . 1. Acute hypoxic and hypercapnic respiratory failure, secondary to multifactorial etiologies and includes combination of acute exacerbation of chronic obstructive pulmonary disease, acute encephalopathy, pneumonia and congestive heart failure. 2. Acute exacerbation of chronic obstructive pulmonary disease in a patient who has smoked for 50+ years and started smoking again. 3. Right lower lobe pneumonia, possible aspiration since he choked on food recently. 4. Abnormal chest x-ray, secondary to combination of pneumonia in the right lower lobe and suspect congestive heart failure. Difficult to rule out any interstitial lung disease as there is no recent x-ray available for comparison. ProBNP is markedly high. 5. Acute kidney injury. Versus CKD 6. Leukocytosis, likely secondary to pneumonia. 7. Metabolic acidosis due to ALBA. 8. ABNORMAL CT CHEST/ Nodular consolidative change identified within the medial aspect of the left upper lobe anteriorly measures 2.2 x 1.9 cm. / 9 mm pleural based nodule RUL Plan . 1. Clinically improving. 2. We will gradually wean FiO2 based on the saturations. Keep them 92% and above. 3. Continue empiric antibiotics, Zosyn. Can be changed to p.o. at discharge 4. ABNORMAL CT CHEST/ Nodular consolidative change identified within the medial aspect of the left upper lobe anteriorly measures 2.2 x 1.9 cm. 9 mm pleural based nodule RUL. Improving RLL pneumonia. will need 3 month f/u ct chest. Patient states that he is followed at the [facility]. I have informed him about the abnormal CT chest and need for follow-up CT chest. He prefers to have it done at [facility]. I have informed the nursing staff to give him a copy of the CT chest report. 5. IV steroids with taper 6. Status post Lasix. We will hold further doses due to ALBA. 7. Follow Renal recommendations. 8. Smoking cessation counseling provided. 9. Monitor BUN and creatinine. 10. Lovenox for DVT prophylaxis. 11. Discussed with RN. 12 echo pending. 13. Patient is insisting in going home. He would need a 6-minute walk test on the day of discharge. Discussed with RN. JAUN WHITLEY MD May 08, 2021 08:35
[2021-05-08] MEDS: LACTOBACILLUS RHAMNOSUS GG 1 CAPSULE. PO SCH (09:00)
[2021-05-08] MEDS: methylPREDNISolone SOD SUCC PF 40 MG/ML VIAL. IV SCH (09:00)
--- NOTE | 2021-05-08 10:41 | NUR ---
Discharge Note: JOCELYNE HUBER [facility] Discharge instructions and discharge home medications reviewed with Patient and a copy given. All questions have been answered and understanding verbalized. The following instructions and handouts were given: HTN, HF, COPD, pnuemonia IV discontinued, no complications. All belongings taken home with patient including his money/money clip from security. Patient discharged to home with self care. Patient was in a hurry to leave this morning and refused his morning medications
== END 2021-05-08 10:25 | disposition home or self-care (01) | DRG 177 ==
LOC: ER 13:16 → ED HOLD 15:00 → 6 SOUTH 18:01
PROVIDERS: ADMIT Internal Medicine; ATTEND Internal Medicine
PROC: 5A09357 Assistance with Respiratory Ventilation, Less than 24 Consecutive Hours, Continuous Positive Airway Pressure (ICD-10-PCS; principal; 2021-05-03)
PROC: 5A09357 Assistance with Respiratory Ventilation, Less than 24 Consecutive Hours, Continuous Positive Airway Pressure (ICD-10-PCS; 2021-05-04)
PROC: 5A09357 Assistance with Respiratory Ventilation, Less than 24 Consecutive Hours, Continuous Positive Airway Pressure (ICD-10-PCS; 2021-05-05)
DX: J69.0 Pneumonitis due to inhalation of food and vomit (principal); I50.33 Acute on chronic diastolic (congestive) heart failure; J96.22 Acute and chronic respiratory failure with hypercapnia; J96.21 Acute and chronic respiratory failure with hypoxia; I21.4 Non-ST elevation (NSTEMI) myocardial infarction; I13.0 Hypertensive heart and chronic kidney disease with heart failure and stage 1 through stage 4 chronic kidney disease, or unspecified chronic kidney disease; C34.90 Malignant neoplasm of unspecified part of unspecified bronchus or lung; E87.2 Acidosis; G93.40 Encephalopathy, unspecified; J44.0 Chronic obstructive pulmonary disease with (acute) lower respiratory infection; J44.1 Chronic obstructive pulmonary disease with (acute) exacerbation; N17.9 Acute kidney failure, unspecified; I42.9 Cardiomyopathy, unspecified; N18.9 Chronic kidney disease, unspecified; Z83.3 Family history of diabetes mellitus; Z85.819 Personal history of malignant neoplasm of unspecified site of lip, oral cavity, and pharynx; Z71.6 Tobacco abuse counseling; F17.210 Nicotine dependence, cigarettes, uncomplicated
CPT/HCPCS: 36415; 36600; 71045; 71250; 76770; 80048; 80053; 80061; 81001; 82805; 83605; 83735; 83880; 84484; 85007; 85025; 87040; 87426; 87804; 93005; 93306; 94618; 94640; 94660; 94760; 96365; 96372; 96375; J0456; J0696; J1644; J1650; J1940; J2543; J2920; J2930; U0003; U0005; 99291-25; G0378